=== PATIENT | male | born 1955 | race Caucasian/White ===

== ENCOUNTER 2023-01-11 07:37 | Outpatient (OUT) | payer MEDICARE, OTHER, SELFPAY ==
[2023-01-11 08:03] LABS: Basophils Absolute Auto 0.1 10^3/uL (0.0-0.1); Basophils Percent Auto 0.7 % (0.2-2.0); Eosinophils Absolute Auto 0.1 10^3/uL (0.0-0.7); Eosinophils Percent Auto 1.3 % (0.9-7.0); Hematocrit 46.2 % (42.0-54.0); Hemoglobin 15.2 g/dL (14.0-18.0); Immature Granulocytes Abs Auto 0.07 10^3/uL (0.00-0.03); Lymphocytes Absolute Auto 2.1 10^3/uL (1.2-3.8); Lymphocytes Percent Auto 31.6 % (20.5-60.0); Mean Corpuscular HGB Conc 32.9 g/dL (29.9-35.2); Mean Corpuscular Hemoglobin 31.1 pg (25.9-34.0); Mean Corpuscular Volume 94.7 fL (80.0-94.0); Monocytes Absolute Auto 0.6 10^3/uL (0.3-0.8); Monocytes Percent Auto 8.8 % (1.7-12.0); Neutrophils Absolute Auto 3.8 10^3/uL (1.4-6.5); Neutrophils Percent Auto 56.6 % (43.0-75.0); Platelet Count 258 10^3/uL (150-450); Red Blood Count 4.88 10^6/uL (4.70-6.10); Red Cell Distribution Width 13.1 % (11.0-15.0); White Blood Count 6.7 10^3/uL (4.0-11.0)
[2023-01-11 08:54] LABS: Alanine Aminotransferase 55 U/L (16-63); Albumin Globulin Ratio 1.4; Albumin Level 4.4 g/dL (3.4-5.0); Alkaline Phosphatase 49 U/L (46-116); Anion Gap 12.5; Aspartate Amino Transferase 38 U/L (15-37); BUN Creatinine Ratio 20.2; Bilirubin Total 0.6 mg/dL (0.2-1.0); Calcium 9.2 mg/dL (8.5-10.1); Carbon Dioxide 29.2 mmol/L (21.0-32.0); Chloride 102 mmol/L (98-107); Chol HDL Ratio 4.9; Cholesterol 168 mg/dL (<=200); Estimated GFR (African America >60 (>=60); Estimated GFR (Non-African Ame >60 (>=60); Globulin 3.2 g/dL; Glucose 107 mg/dL (74-106); HDL Cholesterol 34 mg/dL (40-60); Potassium 3.7 mmol/L (3.5-5.1); Sodium 140 mmol/L (136-145); Thyroid Stimulating Hormone 1.406 uIU/mL (0.358-3.740); Total Protein 7.6 g/dL (6.4-8.2); Triglycerides 172 mg/dL (<=150); Uric Acid 5.3 mg/dL (3.5-7.2); VLDL CHOLESTEROL 34.4 mg/dL
[2023-01-11 08:55] LABS: Prostate Specific Antigen Scrn 1.27 ng/mL (<=4.00)
[2023-01-11 10:41] LABS: Estimated Average Glucose 117 mg/dL; Glycohemoglobin A1C 5.7 % (4.5-6.2)
[2023-01-12 10:10] LABS: Insulin 20.8 uIU/mL (2.6-24.9)
== END 2023-01-11 07:38 | disposition home or self-care (01) ==
LOC: LAB 07:42
PROVIDERS: PCP Family Medicine; Visit Provider Family Medicine
DX: M19.90 Unspecified osteoarthritis, unspecified site (principal); M96.1 Postlaminectomy syndrome, not elsewhere classified; E78.1 Pure hyperglyceridemia; E66.3 Overweight; E78.5 Hyperlipidemia, unspecified; R73.09 Other abnormal glucose; Z12.5 Encounter for screening for malignant neoplasm of prostate; Z12.12 Encounter for screening for malignant neoplasm of rectum
CPT/HCPCS: 36415; 80053; 80061; 83036; 83525; 84436; 84443; 84481; 84550; 85025; G0103

== ENCOUNTER 2023-01-20 10:45 | Outpatient (OUT) | payer MEDICARE, OTHER, SELFPAY ==
[2023-01-20 12:54] LABS: Occult Blood Positive
== END 2023-01-20 10:46 | disposition home or self-care (01) ==
LOC: LAB 10:48
PROVIDERS: PCP Family Medicine; Visit Provider Family Medicine
DX: M19.90 Unspecified osteoarthritis, unspecified site (principal); M96.1 Postlaminectomy syndrome, not elsewhere classified; E78.1 Pure hyperglyceridemia; E66.3 Overweight; E78.5 Hyperlipidemia, unspecified; R73.09 Other abnormal glucose; Z12.5 Encounter for screening for malignant neoplasm of prostate; Z12.12 Encounter for screening for malignant neoplasm of rectum
CPT/HCPCS: G0328

== ENCOUNTER 2023-07-12 09:42 | Outpatient (OUT) | payer MEDICARE, OTHER, SELFPAY ==
--- OUTSIDE RECORDS SUMMARY | 2023-07-12 10:00 | XMS_ITS | CCD ---
Author Organization [facility] Care Team Providers Care Upper Leather Sorter Name Role Phone MEE, DR GONZALES Admitting Unavailable HOY, DR GONZALES Attending Unavailable HOY, DR GONZALES Consulting Unavailable HOY, DR GONZALES Primary Care Unavailable ZIEBER, DR SOLIS Adams Consulting Unavailable HOY, DR GONZALES Primary Care Unavailable HOY, DR GONZALES Admitting Unavailable HOY, DR GONZALES Attending Unavailable HOY, DR GONZALES Consulting Unavailable Matamoros, Verona Consulting Unavailable KINGSTONY, DR GONZALES Primary Care Unavailable HOY, DR GONZALES Admitting Unavailable HOY, DR GONZALES Attending Unavailable HOY, DR GONZALES Consulting Unavailable HOY, DR GONZALES Primary Care Unavailable HOY, DR GONZALES Admitting Unavailable HOY, DR GONZALES Attending Unavailable HOY, DR GONZALES Consulting Unavailable ZIEBER, DR SOLIS Adams Consulting Unavailable Problems Active Problems Problem Classification Problem Date Documented Da te Episodic/Chronic Chronic obstructive pulmonary disease and bronchiectasis (4 sources) Bronchitis, not specified as acute or chronic; Translations: [BRONCHITIS NOT SPEC ACUTE/CHRON] Onset: 06-21-2021 Episodic Diabetes mellitus without complication (1 source) Other abnormal glucose; Translations: [OTHER ABNORMAL GLUCOSE] Onset: 06-11-2021 Episodic Disorders of lipid metabolism (5 sources) Pure hyperglyceridemia; Translations: [Hyperlipidemia, unspecified] Onset: 06-10-2021 Chronic Nutritional deficiencies (1 source) Vitamin D deficiency, unspecified; Translations: [VITAMIN D DEFICIENCY UNSPECIFIED] Onset: 06-11-2021 Chronic Other screening for suspected conditions (not mental disorders or infectious disease) (2 sources) Encounter for screening for malignant neoplasm of prostate; Translations: [Encounter for screening for malignant neoplasm of rectum] Onset: 06-11-2021 Episodic Unclassified (1 source) LOW BACK PAIN, UNSPECIFIED; Translations: [LOW BACK PAIN, UNSPECIFIED] Onset: 06-11-2021 Past or Other Problems Problem Classification Problem Date Documented Da te Episodic/Chronic Other connective tissue disease (4 sources) Impingement syndrome of right shoulder; Translations: [IMPINGEMENT SYNDROME RIGHT SHOULDER] Onset: 10-27-2020 Episodic Other connective tissue disease (4 sources) Impingement syndrome of unspecified shoulder; Translations: [IMPINGEMENT SYNDROME UNS SHOULDER] Onset: 10-07-2020 Episodic Results Test Name Value Interpretation Reference Range Facility LEGIONELLA PNUEMOPHILA ABon 06-24-2021 Legionell P. Abs <0.91 Normal 0.00-0.90 [facility] Comment on above: Result Comment: Nega tive <0.91 Equivocal 0.91 - 1.09 Positive >1.09 This assay detects IgG/IgM/IgA antibodies to L. pneumophila Groups 1-6 by the EIA method. Performed By: #### L EGIONA #### [facility] [address] [place], [place] [address] Dr. Jose Greene H PYLORI ANTIBODY IGGon 06-13 H. PYLORI IGG ABS 0.28 Index Value Normal 0.00-0.79 [facility] Comment on above: Result Comment: Nega tive <0.80 Equivocal 0.80 - 0.89 Positive >0.89 Performed By: #### H PYLLC ####[facility] [address] [place] [id number] Greene TOXOPLASMA GONDII IGG ABon 0 06-22-2021 Toxoplasma gondii Ab,IgG,Qn <3.0 Normal 0.0-7.1 [facility] Comment on above: Result Comment: Nega tive <7.2 Equivocal 7.2 - 8.7 Positive >8.7 Performed By: #### T OXPIGG ####[facility] [address] [place], [place] [address]ZqDr. Jose Greene XR CHEST 2 Von 06-21-2021 XR CHEST 2 V EXAM: XR CHEST 2 V EXAM: XR CHEST 2 V INDICATION: 66 years old Male Bronchitis COMPARISON: None. FINDINGS: The cardiac silhouette is normal. There is no pulmonary edema. The lungs are clear. There is no pneumonia. There is no pneumothorax. There is no abnormal foreign body. IMPRESSION: There is no acute abnormality. Electronically authenticated by: VERONA MATAMOROS Date: 2021-06-21 12:58 Normal [facility] INSULINon 06-11-2021 Insulin 17.8 uIU/mL Normal 2.6-24.9 [facility] Comment on above: Performed By: #### I NSULIN ####[facility] [address] [place] [address]Dr. Jose Jc CBC AUTO DIFFon 06-10-2021 BASO # 0.1 103/ul Normal 0.0-0.1 [facility] Comment on above: Performed By: #### C BC ####[facility] [address] [place], [place] [address]Dr. Jose Greene Basophils/100 WBC (Bld) 0.9 % Normal 0.2-2.0 [facility] Comment on above: Performed By: #### C BC ####[facility] [address] [place], [place] [address]Dr. Jose Greene EO # 0.1 103/ul Normal 0.0-0.7 [facility] Comment on above: Performed By: #### C BC ####[facility] [address] [place], [place] [address]Dr. Jose Greene Eosinophils/100 WBC (Bld) 1.4 % Normal 0.9-7.0 [facility] Comment on above: Performed By: #### C BC ####[facility] [address] [place], [place] [address]Dr. Jose Greene Erythrocyte distribution width (RBC) [Ratio] 12.8 % Normal 11.0-15.0 [facility] Comment on above: Performed By: #### C BC ####[facility] [address] [place], [place] [address]Dr. Jose Greene Hematocrit (Bld) [Volume fraction] 47.3 % Normal 42.0-54.0 [facility] Comment on above: Performed By: #### C BC ####[facility] [address] [place], [place] [address]Dr. Jose Greene Hemoglobin (Bld) [Mass/Vol] 15.7 g/dL Normal 14.0-18.0 [facility] Comment on above: Performed By: #### C BC ####[facility] [address] [place] [address]Dr. Jose Greene IG # 0.05 10e3/ul Critically high 0.00-0.03 [facility] Comment on above: Performed By: #### C BC ####[facility] [address] [place] [id number]. Jose Greene IG % 0.8 % Critically high 0.0-0.5 [facility] Comment on above: Performed By: #### C BC ####[facility] [address] [place], [place] [address]DrCharley Greene LYMPH # 2.2 103/ul Normal 1.2-3.8 [facility] Comment on above: Performed By: #### C BC ####[facility] [address] [place] [address]Dr. Jose Greene Lymphocytes/100 WBC (Bld) 35.1 % Normal 20.5-60.0 [facility] Comment on above: Performed By: #### C BC ####[facility] [address] [place] [address]Dr. Jose Gerene MANUAL DIFF REQ NO Normal [facility] Comment on above: Performed By: #### C BC ####[facility] [address] [place] [id number]. Jose Greene MCH (RBC) [Entitic mass] 30.9 pg Normal 25.9-34.0 [facility] Comment on above: Performed By: #### C BC ####[facility] [address] [place] [id number]. Jose Greene MCHC (RBC) [Mass/Vol] 33.2 g/dL Normal 29.9-35.2 [facility] Comment on above: Performed By: #### C BC ####[facility] [address] [place] [id number] Greene MCV (RBC) [Entitic vol] 93.1 fL Normal 80.0-94.0 [facility] Comment on above: Performed By: #### C BC ####[facility] [address] [place] [address]Dr. Jose Greene MONO # 0.7 103/ul Normal 0.3-0.8 [facility] Comment on above: Performed By: #### C BC ####[facility] [address] [place] [id number]. Jose Greene Monocytes/100 WBC (Bld) 11.0 % Normal 1.7-12.0 [facility] Comment on above: Performed By: #### C BC ####[facility] [address] [place], [place] [address]Dr. Jose Greene NEUT # 3.2 103/ul Normal 1.4-6.5 [facility] Comment on above: Performed By: #### C BC ####[facility] [address] [place], [place] [address]Dr. Jose Greene Neutrophils/100 WBC (Bld) 50.8 % Normal 43.0-75.0 [facility] Comment on above: Performed By: #### C BC ####[facility] [address] [place], [place] [address]Dr. Jose Greene Platelet mean volume (Bld) [Entitic vol] 9.8 fL Normal 9.5-13.5 [facility] Comment on above: Performed By: #### C BC ####[facility] [address] [place], [place] [address]Dr. Jose Greene PLT 254 103/ul Normal 150-450 [facility] Comment on above: Performed By: #### C BC ####[facility] [address] [place], [place] [address]Dr. Jose Greene RBC 5.08 106/ul Normal 4.70-6.10 [facility] Comment on above: Performed By: #### C BC ####[facility] [address] [place] [address]Dr. Maurajany Greene WBC 6.4 103/ul Normal 4.0-11.0 [facility] Comment on above: Performed By: #### C BC ####[facility] [address] [place] [id number] Greene FREE THYROXINE INDEX T7on FTI 3.23 Normal [facility] Comment on above: Performed By: #### T SH, T7, URIC, LIPID, CMP #### [facility] [address] [place] [address] [address] Jose Greene T3U 34.0 % Normal 23.5-40.5 [facility] Comment on above: Performed By: #### T SH, T7, URIC, LIPID, CMP #### [facility] [address] [place] [address] [address] Jose Greene T4 [Mass/Vol] 9.50 ug/dL Normal 4.50-12.10 [facility] Comment on above: Performed By: #### T SH, T7, URIC, LIPID, CMP #### [facility] [address] [place] [address] [address] Jose Greene GLYCOHEMOGLOBIN A1Con 2021 ADA RECOMMENDATION SEE BELOW Normal [facility] Comment on above: Result Comment: ADA RECOMMENDED LIMIT 4.0 - 6.0 ADA THERAPEUTIC TARGET < 7.0 ACTION SUGGESTED > 7.0 Performed By: #### A 1C ####[facility] [address] [place] [address]DrCharley Greene Glucose [Mass/Vol] 117 mg/dL Normal [facility] Comment on above: Performed By: #### A 1C ####[facility] [address] [place] [address]DrCharley Greene HbA1c (Bld) [Mass fraction] 5.7 % Normal 4.5-6.2 [facility] Comment on above: Performed By: #### A 1C ####[facility] [address] [place] [address]DrCharley Greene LIPID PROFILEon 06-10-2021 CHOL-HDL RATIO NORM SEE BELOW Normal [facility] Comment on above: Result Comment: 3.3 - 4.4 LOW RISK 4.4 - 7.1 AVERAGE RISK 7.1 - 11.0 MODERATE RISK >11.0 HIGH RISK Performed By: #### T SH, T7, URIC, LIPID, CMP #### [facility] [address] [place] [address] Dr. Jose Greene Cholesterol [Mass/Vol] 180 mg/dL Normal <=200 [facility] Comment on above: Performed By: #### T SH, T7, URIC, LIPID, CMP #### [facility] [address] [place] [address] Dr. Jose Greene Cholesterol in HDL [Mass/Vol] 32 mg/dL Critically low 40-60 [facility] Comment on above: Performed By: #### T SH, T7, URIC, LIPID, CMP #### [facility] [address] [place] [address] Dr. Jose Greene Cholesterol in LDL [Mass/Vol] 117.6 mg/dL Normal [facility] Comment on above: Performed By: #### T SH, T7, URIC, LIPID, CMP #### [facility] [address] [place] [address] Dr. Jose Greene Cholesterol.total/Ch olesterol in HDL [Mass ratio] 5.6 {ratio} Normal [facility] Comment on above: Performed By: #### T SH, T7, URIC, LIPID, CMP #### [facility] [address] [place] [address] Dr. Jose Greene HDL NORMAL > or = 60 mg/dl - LO W CARDIOVASCULAR RISK <40 mg/dl - HIGH CARDIOVASCULAR RISK Normal [facility] Comment on above: Performed By: #### T SH, T7, URIC, LIPID, CMP #### [facility] [address] [place] [address] Dr. Jose Greene LDL CALC NORMAL SEE BELOW Normal [facility] Comment on above: Result Comment: <100 mg/dl OPTIMAL 100 - 129 mg/dl NEAR OR ABOVE OPTIMAL 130 - 159 mg/dl BORDERLINE HIGH 160 - 189 mg/dl HIGH >190 mg/dl VERY HIGH Performed By: #### T SH, T7, URIC, LIPID, CMP #### [facility] [address] [place] [address] Dr. Jose Greene Triglyceride [Mass/Vol] 152 mg/dL Critically high <=150 [facility] Comment on above: Performed By: #### T SH, T7, URIC, LIPID, CMP #### [facility] [address] [place] [address] [address] Jose Greene VLDL CALC 30.4 mg/dL Normal [facility] Comment on above: Performed By: #### T SH, T7, URIC, LIPID, CMP #### [facility] [address] [place] [address] [address] Jose Greene OCC BLD IMMUNO SCREENon 05-15 OCCULT BLOOD Negative Normal NEGATIVE [facility] Comment on above: Performed By: #### O BSCRN #### [facility] [address] [place] [address] Dr. Jose Greene PROF 14(COMP METB)on 022 Albumin [Mass/Vol] 4.5 g/dL Normal 3.4-5.0 [facility] Comment on above: Performed By: #### T SH, T7, URIC, LIPID, CMP #### [facility] [address] [place] [address] Dr. Jose Greene Albumin/Globulin [Mass ratio] 1.4 {ratio} Normal [facility] Comment on above: Performed By: #### T SH, T7, URIC, LIPID, CMP #### [facility] [address] [place] [address] Dr. Jose Greene ALP [Catalytic activity/Vol] 55 U/L Normal 46-116 [facility] Comment on above: Performed By: #### T SH, T7, URIC, LIPID, CMP #### [facility] [address] [place] [address] Dr. Jose Greene ALT [Catalytic activity/Vol] 42 U/L Normal 16-63 [facility] Comment on above: Performed By: #### T SH, T7, URIC, LIPID, CMP #### [facility] [address] [place] [address] [address] Jose Greene Anion gap [Moles/Vol] 11.5 mmol/L Normal [facility] Comment on above: Performed By: #### T SH, T7, URIC, LIPID, CMP #### [facility] [address] [place] [address] Dr. Jose Greene AST [Catalytic activity/Vol] 28 U/L Normal 15-37 [facility] Comment on above: Performed By: #### T SH, T7, URIC, LIPID, CMP #### [facility] [address] [place] [address] Dr. Jose Greene Bilirubin [Mass/Vol] 0.5 mg/dL Normal 0.2-1.0 [facility] Comment on above: Performed By: #### T SH, T7, URIC, LIPID, CMP #### [facility] [address] [place] [address] Dr. Jose Greene Calcium [Mass/Vol] 9.4 mg/dL Normal 8.5-10.1 [facility] Comment on above: Performed By: #### T SH, T7, URIC, LIPID, CMP #### [facility] [address] [place] [address] Dr. Jose Greene Chloride [Moles/Vol] 102 mmol/L Normal 98-107 [facility] Comment on above: Performed By: #### T SH, T7, URIC, LIPID, CMP #### [facility] [address] [place] [address] Dr. Jose Greene CO2 [Moles/Vol] 28.8 mmol/L Normal 21.0-32.0 [facility] Comment on above: Performed By: #### T SH, T7, URIC, LIPID, CMP #### [facility] [address] [place] [address] Dr. Jose Greene Creatinine [Mass/Vol] 0.92 mg/dL Normal 0.70-1.30 [facility] Comment on above: Performed By: #### T SH, T7, URIC, LIPID, CMP #### [facility] [address] [place] [address] Dr. Jose Greene EGFR-AF AUSTRALIAN >=60 Normal >=60 [facility] Comment on above: Performed By: #### T SH, T7, URIC, LIPID, CMP #### [facility] [address] [place] [address] Dr. Jose Greene EGFR-NON AF AUSTRALIAN >=60 Normal >=60 [facility] Comment on above: Performed By: #### T SH, T7, URIC, LIPID, CMP #### [facility] [address] [place] [address] [address] Jose Greene Globulin (S) [Mass/Vol] 3.2 g/dL Normal [facility] Comment on above: Performed By: #### T SH, T7, URIC, LIPID, CMP #### [facility] [address] [place] [address] [address] Jose Greene Glucose [Mass/Vol] 107 mg/dL Critically high 74-106 [facility] Comment on above: Performed By: #### T SH, T7, URIC, LIPID, CMP #### [facility] [address] [place] [address] Dr. Jose Greene Potassium [Moles/Vol] 4.3 mmol/L Normal 3.5-5.1 [facility] Comment on above: Performed By: #### T SH, T7, URIC, LIPID, CMP #### [facility] [address] [place] [address] [address] Jose Greene Protein [Mass/Vol] 7.7 g/dL Normal 6.1-8.2 [facility] Comment on above: Performed By: #### T SH, T7, URIC, LIPID, CMP #### [facility] [address] [place] [address] Dr. Jose Greene Sodium [Moles/Vol] 138 mmol/L Normal 136-145 [facility] Comment on above: Performed By: #### T SH, T7, URIC, LIPID, CMP #### [facility] [address] [place] [address] Dr. Jose Greene Urea nitrogen [Mass/Vol] 17.0 mg/dL Normal 7.0-18.0 [facility] Comment on above: Performed By: #### T SH, T7, URIC, LIPID, CMP #### [facility] [address] [place] [address] Dr. Jose Greene Urea nitrogen/Creatinine [Mass ratio] 18.5 mg/mg Normal [facility] Comment on above: Performed By: #### T SH, T7, URIC, LIPID, CMP #### [facility] [address] [place] [address] [address] Jose Greene TSHon 06-10-2021 TSH 2.493 uIU/mL Normal 0.470-4.680 [facility] Comment on above: Performed By: #### T SH, T7, URIC, LIPID, CMP #### [facility] [address] [place] [address] Dr. Jose Greene TSH RANGE SEE BELOW Normal [facility] Comment on above: Result Comment: <0.3 4 UIU/ml HYPERTHYROID 0.34-5.60 UIU/ml EUTHYROID >5.60 UIU/ml HYPOTHYROID Performed By: #### T SH, T7, URIC, LIPID, CMP #### [facility] [address] [place] [address] Dr. Jose Greene URIC ACID SERUMon 06-10-2021 Urate [Mass/Vol] 5.1 mg/dL Normal 3.5-8.5 [facility] Comment on above: Performed By: #### T SH, T7, URIC, LIPID, CMP #### [facility] [address] [place] [address] Dr. Jose Greene VITAMIN D 25 OHon 06-10-2021 VIT D 25-OH 44.2 ng/mL Normal [facility] Comment on above: Performed By: #### P EVELIN, VITAD ####[facility] [address] [place], [place] [address]Dr. Jose Greene VIT D RANGES SEE BELOW Normal [facility] Comment on above: Result Comment: <20 ng/mL Vit D deficient 20 - <30 ng/mL Vit D insufficient 30 - 100 ng/mL Vit D sufficient >100 ng/mL Potential Toxicity Performed By: #### P JONNIEC, VITAD ####[facility] [address] [place] [address]Dr. Jose Greene MRI SHOULDER ARTHROGRAMon MRI SHOULDER ARTHROGRAM EXAMINATION: MRI SHOULDER ARTHROGRAM HISTORY: Pain of right shoulder joint COMPARISON: No relevant comparison available. TECHNIQUE: A variety of imaging planes and parameters were utilized for visualization of suspected pathology. Imaging was performed with intra-articular contrast. FINDINGS: ROTATOR CUFF REGION CUFF TENDONS: Marked thinning and increased T2 signal within the supraspinatus tendon without disruption or retraction. [place] within the anterolateral humeral head consistent with prior rotator cuff repair. CUFF MUSCLES: Normal appearing muscles. DELTOID: No significant atrophy or tear. LONG BICEPS TENDON: No abnormal signal, attrition, or tear. LABRUM/BICEPS ANCHOR SUPERIOR: Suspect tear of the anterior and superior labrum. ANTERIOR/INFERIOR: Suspected tear of the anterior labrum. POSTERIOR: No posterior labrum abnormality. CAPSULE No visible capsular laxity or thickening. 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 AC LIGAMENTS: Normal acromioclavicular ligament. CC LIGAMENTS: Normal coracoclavicular ligaments. ACROMION: Normal horizontal (Type I) configuration. SUBACROMIAL BURSA: Small effusion. HYALINE CARTILAGE: No visible cartilage narrowing or focal defect. OTHER BONES: Normal proximal humerus, glenoid, and coracoid. OTHER OBSERVATIONS: Negative. No other significant findings or glenohumeral effusion. IMPRESSION: 1. Partial tear of the supraspinatus tendon with marked increased T2 signal; no disruption or retraction. 2. Small amount of fluid within the subacromial-subdeltoid bursa suggesting a focal area of full-thickness tear. 3. Prior rotator cuff repair. 4. Moderate degenerative changes of acromioclavicular joints with prominent undersurface osteophyte. 5. Suspect tear of the anterior and superior labrum. Electronically authenticated by: SOLIS CRUZ Date: 2020-10-28 06:58 Normal [facility] XR ARTHRO SHLD RTon 10-28-19 21 XR ARTHRO SHLD RT EXAMINATION: XR ARTH RO SHLD RT HISTORY: Pain of right shoulder joint COMPARISON: No relevant comparison available. TECHNIQUE: An arthrogram was performed under fluoroscopic guidance using non-ionic contrast material in the usual sterile manner after obtaining informed consent. Standard level fluoroscopic mode of operation utilized. FINDINGS: JOINT: Right shoulder NEEDLE: 25 gauge, 3.5 spinal needle. MEDICATION: Approximately 10 mL injected into joint space consisting of a mixture of 5 cc normal saline, 5 cc Omnipaque-300, 5 cc 1% Xylocaine and 0.2 cc Dotarem. TECHNIQUE: Anterior approach under fluoroscopic guidance. CLINICAL: Slight decrease in pain following the injection. COMPLICATIONS: None. BONES: No fracture, significant osseous degenerative changes, or visible bone lesion. BURSA: No visible extension of contrast into the subacromial-subdeltoid bursa at this time. OTHER: Negative. IMPRESSION: 1. Technically successful arthrogram without complication. 2. Please see separate CT or MRI arthrogram report. Electronically authenticated by: SOLIS CRUZ Date: 2020-10-27 15:45 Normal [facility] MR knee LT wo conon 05-09-19 21 MR knee LT wo con [facility] [place] [address] MRI Report Signed Patient: Jim Guerrier MR#: [id number] 18 : 1955 Acct:[id number] Age/Sex: 65 / M ADM Date: 05/08/20 Loc: [facility] Room: Type: [facility] Attending Dr: Chrsitian Caban MD Ordering Provider: Christian Caban MD Date of Service: 05/08/20 MR/MR knee LT wo con: LT. KNEE PAIN Copies to: Christian Caban MD MR knee LT wo con 05/08/2020 10:17 AM SIGNS AND SYMPTOMS: LT. KNEE PAIN PROTOCOL: Multiplanar multisequence MR images of the left knee were obtained without IV contrast. COMPARISON: Radiographs from 04/28/2020 FINDINGS: Fluid: There is a small joint effusion. There is no evidence of Villa's cyst.. Medial compartment: Medial meniscus: There is an obliquely oriented minimally displaced tear of the posterior horn and body of the meniscus.. There are no displaced fragments. Medial collateral ligament: Intact. Medial femoral condyle cartilage: There is full thickness chondromalacia with mild subchondral edema.. Osteophytosis. Medial tibial plateau cartilage: There is partial thickness chondromalacia.. Lateral compartment: Lateral meniscus: Intact. Lateral collateral ligament: Intact. Lateral femoral condyle cartilage: Intact. Lateral tibial plateau cartilage: Intact. Posterolateral corner: Popliteus tendon: Intact. Popliteofibular ligament: Intact. Proximal tibiofibular joint: Intact. Anterior compartment: Alignment: Normal. Quadriceps tendon: Intact. Patellar tendon: Intact. Retinaculum: Medial intact. Lateral intact. Patellar cartilage: There is partial thickness chondromalacia predominantly along the lateral articular facet.. Trochlea: There is mild partial thickness chondromalacia.. . Plica: There is a 1.5 cm plica projecting into the medial patellofemoral joint space. Hoffa fat pad: Normal. Intercondylar compartment: Anterior cruciate ligament: Intact. Posterior cruciate ligament: Intact. Bones (other than subarticular marrow): There is marrow edema along the medial aspects of the medial tibial plateau anteriorly which may represent a bone contusion. Muscles: Normal. Vessels: Normal. Nerves: Normal. MR/MR knee LT wo con IMPRESSION: There is an obliquely oriented minimally displaced tear of the posterior horn and body of the meniscus.. There are no displaced fragments. There is full thickness cartilage along the medial femoral condyle with partial thickness chondromalacia of the medial tibial plateau. There is partial thickness chondral malacia along the lateral articular facet of the patella. There is a plica in the medial aspect of the patellofemoral joint space measuring 1.5 cm in length. There is marrow edema along the medial aspects of the medial tibial plateau anteriorly which may represent a bone contusion. Impression dictated by: Kelvin Salazar M.D.05/08/2020 2:34 PM Dictation Location: [place] [address] Transcribed By: [facility] 05/08/20 1434 Dictated By: Kelvin Salazar II, MD 05/08/20 1423 Signed By: 05/08/20 1434 Normal [facility] XR knee LT 4V*on 04-28-2020 XR knee LT 4V* [facility] [place] [address] XRay Report Signed Patient: Jim Guerrier MR#: [id number] 18 : 1955 Acct:[id number] Age/Sex: 65 / M ADM Date: 04/28/20 Loc: XD Room: Type: [facility] Attending Dr: Christian Caban MD Ordering Provider: Christian Caban MD Date of Service: 04/28/20 XR/XR knee LT 4V*: M23.9 Copies to: Christian Caban MD CLINICAL HISTORY: Left knee gave out while walking 3 month ago, medial and the posterior knee pain. XR knee LT 4V* COMPARISON: None FINDINGS: AP, lateral and oblique views of the left knee were obtained. There is no evidence of fracture, dislocation or bony erosion. No significant knee joint narrowing is noted. Minimal spurs are shown at the medial and the lateral femoral condyles, proximal tibia, and the posterior aspect of the patella. XR/XR knee LT 4V* IMPRESSION: SLIGHT DEGENERATIVE SPURS AT THE LEFT KNEE. Impression dictated by: Paul Gorman M.D.04/28/2020 12:09 PM Dictation Location: [place] [address] Transcribed By: [facility] 04/28/20 1209 Dictated By: Paul Gorman MD 04/28/20 1206 Signed By: 04/28/20 1209 [facility] Encounters Encounter Date Encounter Type Care Provider Facility Start: 06-21-2021 End: 06-22-[address] CHRISTIAN CABAN Facility:[facility] Start: 06-10-2021 End: 06-11-[address] CHRISTIAN CABAN Facility:[facility] Start: 10-27-2020 End: 10-27-[address] CHRISTIAN CABAN Facility:[facility] Start: 10-07-2020 End: 10-08-[address] CHRISTIAN CABAN Facility:[facility] Procedures Date Procedure Procedure Detail Performing Clinician Start: 06-10-[address] DEION CABAN Comment on above: Performed By: #### P [facility] ####[facility] [address] [place], [place] [address]AoCharley Jose Greene Payers Date Payer Category Payer Medicare [id number] 1961 Private Health Insurance [facility] [id number] 1961 Unknown [id number] 1955 Unknown [id number] 2.16.84 [id number] 1955 Unknown [id number] 2.16.84 [id number] 1955 Unknown [id number] 2.16.84 [id number] 1955 Unknown [id number] 2.16.84 [id number] Clinical Note 10-07-2020 Note Date & Type Note Facility 10-07-2020 Note PROCEDURE: XR SHOULD ER RT 2V or > HISTORY: Impingement syndrome of shoulder region ; chronic right shoulder pain COMPARISON: None. FINDINGS: BONES:Mild degenerative changes of the acromioclavicular joint. No unremarkable humeral head and glenohumeral joint. No fracture, dislocation, bone lesion. Prior mechanical stabilization of the lower cervical spine. SOFT TISSUES:No visible soft tissue swelling. EFFUSION:None visible. OTHER: Negative. IMPRESSION: 1. Mild degenerative changes of the acromioclavicular joint which may predispose to rotator cuff injury. 2. No acute bone abnormality. Electronically authenticated by: SOLIS CRUZ Date: 2020-10-07 15:49 [facility] Summary Purpose Family History No Family History Records FoundNo Family History Records Found Advance Directives No Advanced Directives Records FoundNo Advanced Directives Records Found Additional Source Comments (unrecognized sect ion and content) No Status Records FoundNo Status Records Found INFORMATION SOURCE (unrecogn ized section and content) DATE CREATED AUTHOR 04/04/2021 [facility] DATE CREATED AUTHOR AUTHOR'S ORGANIZ ATION 06/25/2021 [facility] FOR RECORDS PERTAINING TO PATIENTS WHO ARE OR HAVE BEEN ENROLLED IN A CHEMICAL DEPENDENCY/SUBSTANCEABUSE PROGRAM, SOME INFORMATION MAY BE OMITTED. This clinical summary was aggregated from multiple sources. Caution should be exercised in using it in the provision of clinical care. This summary normalizes information from multiple sources, and as a consequence, information in this document may materially change the coding, format and clinical context of patient data. In addition, data may be omitted in some cases. CLINICAL DECISIONS SHOULD BE BASED ON THE PRIMARY CLINICAL RECORDS. [facility] [employer] [facility]. provides no warranty or guarantee of the accuracy or completeness of information in this document.
[2023-07-12 10:21] LABS: Basophils Absolute Auto 0.1 10^3/uL (0.0-0.1); Eosinophils Absolute Auto 0.1 10^3/uL (0.0-0.7); Eosinophils Percent Auto 1.9 % (0.9-7.0); Hematocrit 46.2 % (42.0-54.0); Immature Granulocytes Abs Auto 0.08 10^3/uL (0.00-0.03); Immature Granulocytes Pct Auto 1.2 % (0.0-0.5); Lymphocytes Absolute Auto 2.3 10^3/uL (1.2-3.8); Lymphocytes Percent Auto 32.7 % (20.5-60.0); Mean Corpuscular HGB Conc 32.5 g/dL (29.9-35.2); Mean Corpuscular Hemoglobin 30.4 pg (25.9-34.0); Mean Corpuscular Volume 93.7 fL (80.0-94.0); Mean Platelet Volume 10.6 fL (9.5-13.5); Monocytes Absolute Auto 0.7 10^3/uL (0.3-0.8); Monocytes Percent Auto 9.5 % (1.7-12.0); Neutrophils Absolute Auto 3.7 10^3/uL (1.4-6.5); Neutrophils Percent Auto 53.7 % (43.0-75.0); Platelet Count 258 10^3/uL (150-450); Red Blood Count 4.93 10^6/uL (4.70-6.10); Red Cell Distribution Width 13.1 % (11.0-15.0); White Blood Count 6.9 10^3/uL (4.0-11.0)
[2023-07-12 10:52] LABS: Alanine Aminotransferase 42 U/L (16-63); Albumin Globulin Ratio 1.4; Albumin Level 4.4 g/dL (3.4-5.0); Alkaline Phosphatase 52 U/L (46-116); Anion Gap 11.3; Aspartate Amino Transferase 31 U/L (15-37); BUN Creatinine Ratio 18.9; Bilirubin Total 0.7 mg/dL (0.2-1.0); Calcium 9.1 mg/dL (8.5-10.1); Carbon Dioxide 28.8 mmol/L (21.0-32.0); Chloride 104 mmol/L (98-107); Chol HDL Ratio 5.3; Cholesterol 185 mg/dL (<=200); Estimated GFR (African America >60 (>=60); Estimated GFR (Non-African Ame >60 (>=60); Free T3 2.96 pg/mL (2.18-3.98); Globulin 3.2 g/dL; Glucose 101 mg/dL (74-106); HDL Cholesterol 35 mg/dL (40-60); Potassium 4.1 mmol/L (3.5-5.1); Sodium 140 mmol/L (136-145); Total Protein 7.6 g/dL (6.4-8.2); Triglycerides 211 mg/dL (<=150); Uric Acid 5.5 mg/dL (3.5-7.2); VLDL CHOLESTEROL 42.2 mg/dL
[2023-07-12 11:26] LABS: Estimated Average Glucose 117 mg/dL; Glycohemoglobin A1C 5.7 % (4.5-6.2)
[2023-07-13 09:09] LABS: Insulin 21.8 uIU/mL (2.6-24.9)
== END 2023-07-12 09:43 | disposition home or self-care (01) ==
LOC: LAB 09:44
PROVIDERS: PCP Family Medicine; Visit Provider Family Medicine
DX: M96.1 Postlaminectomy syndrome, not elsewhere classified (principal); E78.1 Pure hyperglyceridemia; N31.9 Neuromuscular dysfunction of bladder, unspecified; E78.5 Hyperlipidemia, unspecified; R73.09 Other abnormal glucose; Z12.12 Encounter for screening for malignant neoplasm of rectum
CPT/HCPCS: 36415; 80053; 80061; 83036; 83525; 84436; 84443; 84481; 84550; 85025

== ENCOUNTER 2023-07-19 12:14 | Outpatient (REF) | payer MEDICARE, OTHER, SELFPAY ==
--- OUTSIDE RECORDS SUMMARY | 2023-07-19 12:19 | XMS_ITS | CCD ---
Author Organization [facility] [place] [facility] Care Team Providers Care Non Destructive Evaluation Manager Name Role Phone MEE, DR GONZALES Admitting [...] 06-24-2021 Legionell P. Abs <0.91 Normal 0.00-0.90 [facility] Comment on above: Result Comment: Nega tive <0.91 Equivocal 0.91 - 1.09 Positive >1.09 This assay detects IgG/IgM/IgA antibodies to L. pneumophila Groups 1-6 by the EIA method. Performed By: #### L EGIONA #### [facility] [address] [place], [place] [address] Dr. Jose Greene H PYLORI ANTIBODY IGGon 06-13 H. PYLORI IGG ABS 0.28 Index Value Normal 0.00-0.79 [facility] Comment on above: Result Comment: Nega tive <0.80 Equivocal 0.80 - 0.89 Positive >0.89 Performed By: #### H PYLLC ####[facility] [address] [place] [id number] Greene TOXOPLASMA GONDII IGG ABon 0 06-22-2021 Toxoplasma gondii Ab,IgG,Qn <3.0 Normal 0.0-7.1 [facility] Comment on above: Result Comment: Nega tive <7.2 Equivocal 7.2 - 8.7 Positive >8.7 Performed By: #### T OXPIGG ####[facility] [address] [place], [place] [address]CoDr. Jose Greene XR CHEST 2 Von 06-21-2021 [...] VERONA MATAMOROS Date: 2021-06-21 12:[address] [facility] INSULINon 06-11-2021 Insulin 17.8 uIU/mL Normal 2.6-24.[address] [facility] Comment on above: Performed By: #### I NSULIN ####[facility] [address] [place] [address]Dr. Jose Jc CBC AUTO DIFFon 06-10-2021 BASO # 0.1 103/ul Normal 0.0-0.1 [facility] Comment on above: Performed By: #### C BC ####[facility] [address] [place], [place] [address]Dr. Jose Greene Basophils/100 WBC (Bld) 0.9 % Normal 0.2-2.[address] [facility] Comment on above: Performed By: #### C BC ####[facility] [address] [place], [place] [address]Dr. Jose Greene EO # 0.1 103/ul Normal 0.0-0.[address] [facility] Comment on above: Performed By: #### C BC ####[facility] [address] [place], [place] [address]Dr. Jose Greene Eosinophils/100 WBC (Bld) 1.4 % Normal 0.9-7.[address] [facility] Comment on above: Performed By: #### C BC ####[facility] [address] [place], [place] [address]Dr. Jose Greene Erythrocyte distribution width (RBC) [Ratio] 12.8 % Normal 11.0-15.[address] [facility] Comment on above: Performed By: #### C BC ####[facility] [address] [place], [place] [address]Dr. Jose Greene Hematocrit (Bld) [Volume fraction] 47.3 % Normal 42.0-54.[address] [facility] Comment on above: Performed By: #### C BC ####[facility] [address] [place], [place] [address]Dr. Jose Greene Hemoglobin (Bld) [Mass/Vol] 15.7 g/dL Normal 14.0-18.0 [facility] Comment on above: Performed By: #### C BC ####[facility] [address] [place] [address]Dr. Jose Greene IG # 0.05 10e3/ul Critically high 0.00-0.03 [facility] Comment on above: Performed By: #### C BC ####[facility] [address] [place] [id number]. Jose Greene IG % 0.8 % Critically high 0.0-0.5 [facility] Comment on above: Performed By: #### C BC ####[facility] [address] [place], [place] [address]DrCharley Greene LYMPH # 2.2 103/ul Normal 1.2-3.8 [facility] Comment on above: Performed By: #### C BC ####[facility] [address] [place] [address]Dr. Jose Greene Lymphocytes/100 WBC (Bld) 35.1 % Normal 20.5-60.0 [facility] Comment on above: Performed By: #### C BC ####[facility] [address] [place] [address]Dr. Jose Greene MANUAL DIFF REQ NO Normal [facility] Comment on above: Performed By: #### C BC ####[facility] [address] [place] [id number]. Jose Greene MCH (RBC) [Entitic mass] 30.9 pg Normal 25.9-34.0 [facility] Comment on above: Performed By: #### C BC ####[facility] [address] [place] [address]Dr. Jose Greene MCHC (RBC) [Mass/Vol] 33.2 g/dL Normal 29.9-35.[address] [facility] Comment on above: Performed By: #### C BC ####[facility] [address] [place] [address]DrCharley Greene MCV (RBC) [Entitic vol] 93.1 fL Normal 80.0-94.0 [facility] Comment on above: Performed By: #### C BC ####[facility] [address] [place] [address]Dr. Jose Greene MONO # 0.7 103/ul Normal 0.3-0.8 [facility] Comment on above: Performed By: #### C BC ####[facility] [address] [place] [id number]. Jose Greene Monocytes/100 WBC (Bld) 11.0 % Normal 1.7-12.0 [facility] Comment on above: Performed By: #### C BC ####[facility] [address] [place], [place] [address]Dr. Jose Greene NEUT # 3.2 103/ul Normal 1.4-6.5 [facility] Comment on above: Performed By: #### C BC ####[facility] [address] [place], [place] [address]Dr. Jose Greene Neutrophils/100 WBC (Bld) 50.8 % Normal 43.0-75.0 [facility] Comment on above: Performed By: #### C BC ####[facility] [address] [place], [place] [address]Dr. Jose Greene Platelet mean volume (Bld) [Entitic vol] 9.8 fL Normal 9.5-13.5 [facility] Comment on above: Performed By: #### C BC ####[facility] [address] [place], [place] [address]Dr. Jose Greene PLT 254 103/ul Normal 150-[address] [facility] Comment on above: Performed By: #### C BC ####[facility] [address] [place], [place] [address]Dr. Jose Greene RBC 5.08 106/ul Normal 4.70-6.[address] [facility] Comment on above: Performed By: #### C BC ####[facility] [address] [place] [address]Dr. Maurajany Greene WBC 6.4 103/ul Normal 4.0-11.[address] [facility] Comment on above: Performed By: #### C BC ####[facility] [address] [place] [id number] Greene FREE THYROXINE INDEX T7on FTI 3.23 Normal [facility] Comment on above: Performed By: #### T SH, T7, URIC, LIPID, CMP #### [facility] [address] [place] [address] [address] Jose Greene T3U 34.0 % Normal 23.5-40.5 [facility] Comment on above: Performed By: #### T SH, T7, URIC, LIPID, CMP #### [facility] [address] [place] [address] [address] Jose Greene T4 [Mass/Vol] 9.50 ug/dL Normal 4.50-12.10 [facility] Comment on above: Performed By: #### T SH, T7, URIC, LIPID, CMP #### [facility] [address] [place] [address] [address] Jose Greene GLYCOHEMOGLOBIN A1Con 2021 ADA RECOMMENDATION SEE BELOW Normal [facility] Comment on above: Result Comment: ADA RECOMMENDED LIMIT 4.0 - 6.0 ADA THERAPEUTIC TARGET < 7.0 ACTION SUGGESTED > 7.0 Performed By: #### A 1C ####[facility] [address] [place] [address]DrCharley Greene Glucose [Mass/Vol] 117 mg/dL Normal [facility] Comment on above: Performed By: #### A 1C ####[facility] [address] [place] [address]DrCharley Greene HbA1c (Bld) [Mass fraction] 5.7 % Normal 4.5-6.2 [facility] Comment on above: Performed By: #### A 1C ####[facility] [address] [place] [address]DrCharley Greene LIPID PROFILEon 06-10-2021 CHOL-HDL RATIO NORM SEE BELOW Normal [facility] Comment on above: Result Comment: 3.3 - 4.4 LOW RISK 4.4 - 7.1 AVERAGE RISK 7.1 - 11.0 MODERATE RISK >11.0 HIGH RISK Performed By: #### T SH, T7, URIC, LIPID, CMP #### [facility] [address] [place] [address] Dr. Jose Greene Cholesterol [Mass/Vol] 180 mg/dL Normal <=200 [facility] Comment on above: Performed By: #### T SH, T7, URIC, LIPID, CMP #### [facility] [address] [place] [address] Dr. Jose Greene Cholesterol in HDL [Mass/Vol] 32 mg/dL Critically low 40-60 [facility] Comment on above: Performed By: #### T SH, T7, URIC, LIPID, CMP #### [facility] [address] [place] [address] Dr. Jose Greene Cholesterol in LDL [Mass/Vol] 117.6 mg/dL Normal [facility] Comment on above: Performed By: #### T SH, T7, URIC, LIPID, CMP #### [facility] [address] [place] [address] Dr. Jose Greene Cholesterol.total/Ch olesterol in HDL [Mass ratio] 5.6 {ratio} Normal [facility] Comment on above: Performed By: #### T SH, T7, URIC, LIPID, CMP #### [facility] [address] [place] [address] Dr. Jose Greene HDL NORMAL > or = 60 mg/dl - LO W CARDIOVASCULAR RISK <40 mg/dl - HIGH CARDIOVASCULAR RISK Normal [facility] Comment on above: Performed By: #### T SH, T7, URIC, LIPID, CMP #### [facility] [address] [place] [address] Dr. Jose Greene LDL CALC NORMAL SEE BELOW Normal [facility] Comment on above: Result Comment: <100 mg/dl OPTIMAL 100 - 129 mg/dl NEAR OR ABOVE OPTIMAL 130 - 159 mg/dl BORDERLINE HIGH 160 - 189 mg/dl HIGH >190 mg/dl VERY HIGH Performed By: #### T SH, T7, URIC, LIPID, CMP #### [facility] [address] [place] [address] Dr. Jose Greene Triglyceride [Mass/Vol] 152 mg/dL Critically high <=150 [facility] Comment on above: Performed By: #### T SH, T7, URIC, LIPID, CMP #### [facility] [address] [place] [address] [address] Jose Greene VLDL CALC 30.4 mg/dL Normal [facility] Comment on above: Performed By: #### T SH, T7, URIC, LIPID, CMP #### [facility] [address] [place] [address] [address] Jose Greene OCC BLD IMMUNO SCREENon 05-15 OCCULT BLOOD Negative Normal NEGATIVE [facility] Comment on above: Performed By: #### O BSCRN #### [facility] [address] [place] [address] Dr. Jose Greene PROF 14(COMP METB)on 022 Albumin [Mass/Vol] 4.5 g/dL Normal 3.4-5.0 [facility] Comment on above: Performed By: #### T SH, T7, URIC, LIPID, CMP #### [facility] [address] [place] [address] Dr. Jose Greene Albumin/Globulin [Mass ratio] 1.4 {ratio} Normal [facility] Comment on above: Performed By: #### T SH, T7, URIC, LIPID, CMP #### [facility] [address] [place] [address] Dr. Jose Greene ALP [Catalytic activity/Vol] 55 U/L Normal 46-116 [facility] Comment on above: Performed By: #### T SH, T7, URIC, LIPID, CMP #### [facility] [address] [place] [address] Dr. Jose Greene ALT [Catalytic activity/Vol] 42 U/L Normal 16-63 [facility] Comment on above: Performed By: #### T SH, T7, URIC, LIPID, CMP #### [facility] [address] [place] [address] [address] Jose Greene Anion gap [Moles/Vol] 11.5 mmol/L Normal [facility] Comment on above: Performed By: #### T SH, T7, URIC, LIPID, CMP #### [facility] [address] [place] [address] Dr. Jose Greene AST [Catalytic activity/Vol] 28 U/L Normal 15-37 [facility] Comment on above: Performed By: #### T SH, T7, URIC, LIPID, CMP #### [facility] [address] [place] [address] Dr. Jose Greene Bilirubin [Mass/Vol] 0.5 mg/dL Normal 0.2-1.0 [facility] Comment on above: Performed By: #### T SH, T7, URIC, LIPID, CMP #### [facility] [address] [place] [address] Dr. Jose Greene Calcium [Mass/Vol] 9.4 mg/dL Normal 8.5-10.1 [facility] Comment on above: Performed By: #### T SH, T7, URIC, LIPID, CMP #### [facility] [address] [place] [address] Dr. Jose Greene Chloride [Moles/Vol] 102 mmol/L Normal 98-[address] [facility] Comment on above: Performed By: #### T SH, T7, URIC, LIPID, CMP #### [facility] [address] [place] [address] Dr. Jose Greene CO2 [Moles/Vol] 28.8 mmol/L Normal 21.0-32.0 [facility] Comment on above: Performed By: #### T SH, T7, URIC, LIPID, CMP #### [facility] [address] [place] [address] Dr. Jose Greene Creatinine [Mass/Vol] 0.92 mg/dL Normal 0.70-1.30 [facility] Comment on above: Performed By: #### T SH, T7, URIC, LIPID, CMP #### [facility] [address] [place] [address] Dr. Jose Greene EGFR-AF BAHRAINI >=60 Normal >=60 [facility] Comment on above: Performed By: #### T SH, T7, URIC, LIPID, CMP #### [facility] [address] [place] [address] Dr. Jose Greene EGFR-NON AF BAHRAINI >=60 Normal >=60 [facility] Comment on above: Performed By: #### T SH, T7, URIC, LIPID, CMP #### [facility] [address] [place] [address] [address] Jose Greene Globulin (S) [Mass/Vol] 3.2 g/dL Normal [facility] Comment on above: Performed By: #### T SH, T7, URIC, LIPID, CMP #### [facility] [address] [place] [address] [address] Jose Greene Glucose [Mass/Vol] 107 mg/dL Critically high 74-106 [facility] Comment on above: Performed By: #### T SH, T7, URIC, LIPID, CMP #### [facility] [address] [place] [address] Dr. Jose Greene Potassium [Moles/Vol] 4.3 mmol/L Normal 3.5-5.1 [facility] Comment on above: Performed By: #### T SH, T7, URIC, LIPID, CMP #### [facility] [address] [place] [address] [address] Jose Greene Protein [Mass/Vol] 7.7 g/dL Normal 6.1-8.2 [facility] Comment on above: Performed By: #### T SH, T7, URIC, LIPID, CMP #### [facility] [address] [place] [address] Dr. Jose Greene Sodium [Moles/Vol] 138 mmol/L Normal 136-145 [facility] Comment on above: Performed By: #### T SH, T7, URIC, LIPID, CMP #### [facility] [address] [place] [address] Dr. Jose Greene Urea nitrogen [Mass/Vol] 17.0 mg/dL Normal 7.0-18.0 [facility] Comment on above: Performed By: #### T SH, T7, URIC, LIPID, CMP #### [facility] [address] [place] [address] Dr. Jose Greene Urea nitrogen/Creatinine [Mass ratio] 18.5 mg/mg Normal [facility] Comment on above: Performed By: #### T SH, T7, URIC, LIPID, CMP #### [facility] [address] [place] [address] [address] Jose Greene TSHon 06-10-2021 TSH 2.493 uIU/mL Normal 0.470-4.680 [facility] Comment on above: Performed By: #### T SH, T7, URIC, LIPID, CMP #### [facility] [address] [place] [address] Dr. Jose Greene TSH RANGE SEE BELOW Normal [facility] Comment on above: Result Comment: <0.3 4 UIU/ml HYPERTHYROID 0.34-5.60 UIU/ml EUTHYROID >5.60 UIU/ml HYPOTHYROID Performed By: #### T SH, T7, URIC, LIPID, CMP #### [facility] [address] [place] [address] Dr. Jose Greene URIC ACID SERUMon 06-10-2021 Urate [Mass/Vol] 5.1 mg/dL Normal 3.5-8.5 [facility] Comment on above: Performed By: #### T SH, T7, URIC, LIPID, CMP #### [facility] [address] [place] [address] Dr. Jose Greene VITAMIN D 25 OHon 06-10-2021 VIT D 25-OH 44.2 ng/mL Normal [facility] Comment on above: Performed By: #### P EVELIN, VITAD ####[facility] [address] [place], [place] [address]Dr. Jose Greene VIT D RANGES SEE BELOW Normal [facility] Comment on above: Result Comment: <20 ng/mL Vit D deficient 20 - <30 ng/mL Vit D insufficient 30 - 100 ng/mL Vit D sufficient >100 ng/mL Potential Toxicity Performed By: #### P JONNIEC, VITAD ####[facility] [address] [place] [address]Dr. Jose Greene MRI SHOULDER ARTHROGRAMon MRI SHOULDER [...] the supraspinatus tendon without disruption or retraction. [place] within the anterolateral humeral head consistent with [...] by: SOLIS CRUZ Date: 2020-10-28 06:58 Normal [facility] XR ARTHRO SHLD RTon 10-28-19 21 XR [...] by: SOLIS CRUZ Date: 2020-10-27 15:45 Normal [facility] MR knee LT wo conon 05-09-19 21 MR knee LT wo con [facility] [place] [address] MRI Report Signed Patient: Jim Guerrier MR#: [id number] 18 : 1955 Acct:[id number] Age/Sex: 65 / M ADM Date: 05/08/20 Loc: [facility] Room: Type: [facility] Attending Dr: Christian Caban MD Ordering Provider: [...] Kelvin Salazar M.D.05/08/2020 2:34 PM Dictation Location: [place] [address] Transcribed By: [facility] 05/08/20 1434 Dictated By: Kelvin Salazar II, MD 05/08/20 1423 Signed By: 05/08/20 1434 Normal [facility] XR knee LT 4V*on 04-28-2020 XR knee LT 4V* [facility] [place] [address] XRay Report Signed Patient: Jim Guerrier MR#: [id number] [birth year] : 1955 Acct:[id number] Age/Sex: 65 / M ADM Date: 04/28/20 Loc: XD Room: Type: [facility] Attending Dr: Christian Caban MD Ordering Provider: [...] Paul Gorman M.D.04/28/2020 12:09 PM Dictation Location: [place] [address] Transcribed By: [facility] 04/28/20 1209 Dictated By: Paul Gorman MD 04/28/20 1206 Signed By: 04/28/20 1209 [facility] Encounters Encounter Date Encounter Type Care [...] Comment on above: Performed By: #### P [facility], VITAD ####[facility] [address] [place], [place] [address]KgCharley Jose Greene Payers Date Payer Category Payer Medicare [id number] 1961 Private Health Insurance [facility] [id number] 1961 Unknown [id number] 1955 Unknown [id number] 2.16.84 [id number] 1955 Unknown [id number] 2.16.84 [id number] 1955 Unknown [id number] 2.16.84 [id number] 1955 Unknown [id number] 2.16.84 [id number] Clinical Note 10-07-2020 Note Date & Type [...] authenticated by: SOLIS CRUZ Date: 2020-10-07 15:49 [facility] Summary Purpose Family History No Family History Records FoundNo Family History Records Found Advance Directives No Advanced Directives Records FoundNo Advanced Directives Records Found Additional Source Comments (unrecognized sect ion and content) No Status Records FoundNo Status Records Found INFORMATION SOURCE (unrecogn ized section and content) DATE CREATED AUTHOR 04/04/2021 [facility] DATE CREATED AUTHOR AUTHOR'S ORGANIZ ATION 06/25/2021 [facility] FOR RECORDS PERTAINING TO PATIENTS WHO ARE [...] BE BASED ON THE PRIMARY CLINICAL RECORDS. [facility] [email or web address] [facility]. provides no warranty or guarantee of the accuracy or completeness of information in this document.
[2023-07-19 15:56] LABS: Internal Control Within Normal Limits; Occult Blood Positive
== END 2023-07-19 12:15 | disposition home or self-care (01) ==
LOC: LAB 12:14
PROVIDERS: PCP Family Medicine; Visit Provider Family Medicine
DX: M96.1 Postlaminectomy syndrome, not elsewhere classified (principal); E78.1 Pure hyperglyceridemia; N31.9 Neuromuscular dysfunction of bladder, unspecified; E78.5 Hyperlipidemia, unspecified; R73.09 Other abnormal glucose; Z12.12 Encounter for screening for malignant neoplasm of rectum
CPT/HCPCS: G0328

== ENCOUNTER 2023-09-26 12:52 | Outpatient (OUT) | payer MEDICARE, OTHER, SELFPAY | END 2023-09-26 12:53 | disposition home or self-care (01) | LOC: PST 12:53 | PROVIDERS: PCP Family Medicine; Visit Provider Surgery | DX: Z01.818 Encounter for other preprocedural examination (principal); R19.5 Other fecal abnormalities; Z86.010 Personal history of colon polyps ==

== ENCOUNTER 2023-11-01 06:26 | Day surgery (SDC) | payer MEDICARE, OTHER, SELFPAY ==
--- NOTE | 2023-11-01 | OP_ITS ---
OPERATION DATE: 11/01/2023 PREOPERATIVE DIAGNOSIS: Personal history of colon polyps, positive fecal occult blood test. POSTOPERATIVE DIAGNOSIS: Ascending colon polyp x1, descending colon polyps x2, as well as flat, irregular sigmoid polyp and moderate sigmoid diverticulosis. PROCEDURE: Colonoscopy to cecum with cold snare polypectomy x3, as well as biopsy of sigmoid polyp x2. SURGEON: Piotr Sherman M.D. ANESTHESIA: Monitored anesthesia care. ESTIMATED BLOOD LOSS: Less than 1 mL. INDICATIONS AND CONSENT: Patient is a 68-year-old male with a personal history of colon polyps, who was recently found to have positive fecal occult blood test. Indications, risks, benefits, alternatives of proceeding with colonoscopy were explained extensively to the patient, including the risks of bleeding, colon perforation or anesthetic complications. All of his questions were answered. Informed consent was obtained. PROCEDURE: Patient brought to the operating room, placed in the left lateral decubitus position. Monitored anesthesia care was provided. Rectal exam was performed which showed no masses or blood. The scope was inserted into the anal canal. Under direct visualization was advanced. It was advanced to the cecum where cecal markings were clearly identified. There was noted to be a fair prep with some brown stool and semi-solid stool throughout the colon that was partially irrigated clear. Upon withdrawal of the scope, mucosal surfaces were carefully examined. Within the proximal ascending colon, there was noted to be a 4 mm sessile polyp that was removed with cold snare with good hemostasis. Within the descending colon, there were two adjacent polyps, 5 and 4 mm, that were removed with cold snare with good hemostasis. Within the sigmoid colon, there was noted to be a moderate amount of diverticulosis without inflammatory changes or scarring. Approximately 60 cm from the anal verge, there was noted to be a flat, irregular polyp that was around the fold. There was no ulceration or bleeding. Several biopsies were obtained with cold biopsy forceps with good hemostasis. There was a large amount of liquid stool, as well as some semi- solid stool in the area, which made visualization more difficult. It was felt that it would require a lift technique for removal, due to the flap nature of the polyp. The scope was retroflexed in the anal canal. There were prominent rectal veins noted. No significant hemorrhoidal disease. Scope was then withdrawn. Patient tolerated procedure well, was sent to recovery room in good condition. Will require colonoscopy within six months for attempted removal of the sigmoid polyp. CC: Gelacio Karimi
--- OUTSIDE RECORDS SUMMARY | 2023-11-01 06:30 | XMS_ITS | CCD ---
Author Organization [facility] Care Team Providers Care Pharmacy Billing Adjudicator Name Role Phone ROHIT, DR GONZALES Admitting Unavailable ROHIT, DR GONZALES Attending Unavailable KINGSTONY, DR GONZALES Consulting Unavailable KINGSTONY, DR GONZALES Primary Care Unavailable ZIEBER, DR SOLIS Adams Consulting Unavailable KINGSTONY, DR GONZALES Primary Care Unavailable KINGSTONY, DR GONZALES Admitting Unavailable KINGSTONY, DR GONZALES Attending Unavailable KINGSTONY, DR GONZALES Consulting Unavailable Matamoros, Verona Consulting Unavailable ROHIT, DR GONZALES Primary Care Unavailable ROHIT, DR GONZALES Admitting Unavailable KINGSTONY, DR GONZALES Attending Unavailable HOY, DR GONZALES Consulting Unavailable KINGSTONY, DR GONZALES Primary Care Unavailable HOY, DR GONZALES Admitting Unavailable HOY, DR GONZALES Attending Unavailable KINGSTONY, DR GONZALES Consulting Unavailable ZIEBMK, DR SOLIS Adams Consulting Unavailable Christian Bee Primary Care Physician Piotr BEACH Attending Unavailable Christian Bee Referring Unavailable Medications Current Medications Medication Drug Class(es) Dates Sig (Normalized) Sig (Original) Acetaminophen / HYDROcodone (1 source) Opioid Agonist Start: 02-02-2015 take 1 tablet by mouth every six hours as needed for pain [place] 325 mg-10 mg oral tablet 1 tab(s), Oral, q6hr as needed for pain, Refill(s) 0, Pain Start Date: 02/02/15 Status: Ordered fenofibrate 160 mg oral tablet (1 source) Peroxisome Proliferator Receptor alpha Agonist Start: 07-25-2023 take 1 tablet by mouth once daily fenofibrate 160 mg oral tablet 160 mg = 1 tab(s), Oral, Daily, Refills(s) 0 Start Date: 07/25/23 Status: Ordered SUMAtriptan 100 mg oral tablet (1 source) Serotonin-1b and Serotonin-1d Receptor Agonist Start: 06-11-2024 take 1 tablet by mouth once Imitrex 100 mg Tab 100 mg = 1 tab(s), Oral, Once, Refills(s) 0 Start Date: 07/25/23 Status: Ordered Problems Active Problems Problem Classification Problem Date Documented Da te Episodic/Chronic Chronic obstructive pulmonary disease and bronchiectasis (4 sources) Bronchitis, not specified as acute or chronic; Translations: [BRONCHITIS NOT SPEC ACUTE/CHRON] Onset: 06-21-2021 Episodic Diabetes mellitus without complication (1 source) Other abnormal glucose; Translations: [OTHER ABNORMAL GLUCOSE] Onset: 06-11-2021 Episodic Disorders of lipid metabolism (6 sources) Pure hyperglyceridemia; Translations: [Hyperlipidemia, unspecified] Onset: 06-10-2021 Chronic Diverticulosis and diverticulitis (1 source) Diverticular disease 07-25-2023 Chronic Headache; including migraine (1 source) Migraine 07-25-2023 Chronic Nutritional deficiencies (1 source) Vitamin D deficiency, unspecified; Translations: [VITAMIN D DEFICIENCY UNSPECIFIED] Onset: 06-11-2021 Chronic Other and unspecified benign neoplasm (2 sources) History of polyp of colon; Translations: [Personal history of colonic polyps] Onset: 08-23-2023 Episodic Other diseases of bladder and urethra (1 source) Neurogenic bladder 07-25-2023 Chronic Other gastrointestinal disorders (1 source) Abnormal feces; Translations: [Other fecal abnormalities] Onset: 08-23-2023 Episodic Other gastrointestinal disorders (1 source) Occult blood in stools 07-25-2023 Episodic Other nervous system disorders (1 source) Chronic pain due to injury 07-25-2023 Chronic Other nutritional; endocrine; and metabolic disorders (1 source) Body mass index 30+ - obesity 08-23-2023 Chronic Other nutritional; endocrine; and metabolic disorders (1 source) Obesity caused by energy imbalance 07-25-2023 Chronic Other screening for suspected conditions (not mental disorders or infectious disease) (2 sources) Encounter for screening for malignant neoplasm of prostate; Translations: [Encounter for screening for malignant neoplasm of rectum] Onset: 06-11-2021 Episodic Spondylosis; intervertebral disc disorders; other back problems (1 source) Lumbar post-laminectomy syndrome 07-25-2023 Chronic Unclassified (1 source) LOW BACK PAIN, UNSPECIFIED; [...] Test Name Value Interpretation Reference Range Facility Ambulatory Visit Summaryon 0 08-23-2023 Ambulatory Visit Summary Ambulatory Visit Summary JIM GUERRIER :1955 Visit Date:08/23/2023 Ambulatory Visit Instructions Your Diagnosis Personal history of colonic polyps Positive occult stool blood test Your Care Team Attending Physician - BAYLEE MILLARD, Piotr Adams Primary Care Physician - Rohit MILLARD, Christian Referring Physician - Christian Bee MD This Is Your Medications List Contact prescribing physician if questions or concerns acetaminophen-hydrocod one ([place] 325 mg-10 mg oral tablet) fenofibrate (fenofibrate 160 mg oral tablet) sumatriptan (Imitrex 100 mg Tab) Procedures Performed Colonoscopy (02/02/2015), Appendectomy, Cervical discectomy, History of lumbar laminectomy, Repair of left inguinal hernia, Repair of right inguinal hernia, Rotator cuff repair. Discharge Vitals Heart Rate (Peripheral) 72 Respiratory Rate 16 Blood Pressure 144/94 Height 172.72 cm Height 68 in Weight 91 kg Weight 200.2 lb BMI 30.5 Medications What How Much When Instructions Unchanged acetaminophen-hydrocod one ([place] 325 mg-10 mg oral tablet) 1 Tablets By Mouth Every 6 hours as needed for as needed for pain Contact prescribing physician if questions or concerns Unchanged fenofibrate (fenofibrate 160 mg oral tablet) 1 Tablets By Mouth Every day Contact prescribing physician if questions or concerns Unchanged sumatriptan (Imitrex 100 mg Tab) 1 Tablets By Mouth Once Contact prescribing physician if questions or concerns Allergies No Known Allergies Problems Ongoing - Any problem that you are currently receiving treatment for. BMI 30.0-30.9,adult Chronic pain due to trauma Diverticulosis Hypertriglyceridemia Lumbar post-laminectomy syndrome Migraine Neurogenic urinary bladder Obesity due to excess calories Personal history of colonic polyps Positive occult stool blood test Patient Survey You may receive a survey via text or e-mail asking about your office visit. Please share your experience with us by completing your survey. We appreciate your feedback and thank you for choosing us for your care. [facility] Ambulatory Visit Summary Ambulatory Visit Summary JIM GUERRIER :1955 Visit Date:08/23/2023 Ambulatory Visit Instructions Your Diagnosis Personal history of colonic polyps Positive occult stool blood test Your Care Team Attending Physician - Piotr BEACH MD Primary Care Physician - Christian Bee MD Referring Physician - Christian Bee MD This Is Your Medications List Contact prescribing physician if questions or concerns acetaminophen-hydrocod one ([place] 325 mg-10 mg oral tablet) fenofibrate (fenofibrate 160 mg oral tablet) sumatriptan (Imitrex 100 mg Tab) Procedures Performed Colonoscopy (02/02/2015), Appendectomy, Cervical discectomy, History of lumbar laminectomy, Repair of left inguinal hernia, Repair of right inguinal hernia, Rotator cuff repair. Discharge Vitals Heart Rate (Peripheral) 72 Respiratory Rate 16 Blood Pressure 144/94 Height 172.72 cm Height 68 in Weight 91 kg Weight 200.2 lb BMI 30.5 Medications What How Much When Instructions Unchanged acetaminophen-hydrocod one ([place] 325 mg-10 mg oral tablet) 1 Tablets By Mouth Every 6 hours as needed for as needed for pain Contact prescribing physician if questions or concerns Unchanged fenofibrate (fenofibrate 160 mg oral tablet) 1 Tablets By Mouth Every day Contact prescribing physician if questions or concerns Unchanged sumatriptan (Imitrex 100 mg Tab) 1 Tablets By Mouth Once Contact prescribing physician if questions or concerns Allergies No Known Allergies Problems Ongoing - Any problem that you are currently receiving treatment for. BMI 30.0-30.9,adult Chronic pain due to trauma Diverticulosis Hypertriglyceridemia Lumbar post-laminectomy syndrome Migraine Neurogenic urinary bladder Obesity due to excess calories Personal history of colonic polyps Positive occult stool blood test Patient Survey You may receive a survey via text or e-mail asking about your office visit. Please share your experience with us by completing your survey. We appreciate your feedback and thank you for choosing us for your care. [facility] Physician Referralon 024 Physician Referral [phone] [id number] [facility] LEGIONELLA PNUEMOPHILA ABon 06-24-2021 Legionell P. Abs <0.91 Normal 0.00-0.90 [facility] Comment on above: Result Comment: Nega tive <0.91 Equivocal 0.91 - 1.09 Positive >1.09 This assay detects IgG/IgM/IgA antibodies to L. pneumophila Groups 1-6 by the EIA method. Performed By: #### L EGIONA #### [facility] [address] [address] [address] Jose Greene H PYLORI ANTIBODY IGGon 06-13 H. PYLORI IGG ABS 0.28 Index Value Normal 0.00-0.79 [facility] Comment on above: Result Comment: Nega tive <0.80 Equivocal 0.80 - 0.89 Positive >0.89 Performed By: #### H PYLLC ####[facility] [address] [address]Dr. Jose Greene TOXOPLASMA GONDII IGG ABon 0 06-22-2021 Toxoplasma gondii Ab,IgG,Qn <3.0 Normal 0.0-7.[address] [facility] Comment on above: Result Comment: Nega tive <7.2 Equivocal 7.2 - 8.7 Positive >8.7 Performed By: #### T OXPIGG ####[facility] [address] [address]Dr. Jose Greene XR CHEST 2 Von 06-21-2021 [...] VERONA MATAMOROS Date: 2021-06-21 12:58 Normal [facility] INSULINon 06-11-2021 Insulin 17.8 uIU/mL Normal 2.6-24.[address] [facility] Comment on above: Performed By: #### I NSULIN ####[facility] [address] [address]Dr. Jose Greene CBC AUTO DIFFon 06-10-2021 BASO # 0.1 103/ul Normal 0.0-0.1 [facility] Comment on above: Performed By: #### C BC ####[facility] [address] [id number]. Jose Greene Basophils/100 WBC (Bld) 0.9 % Normal 0.2-2.0 [facility] Comment on above: Performed By: #### C BC ####[facility] [address] [address]Dr. Jose Jc EO # 0.1 103/ul Normal 0.0-0.7 [facility] Comment on above: Performed By: #### C BC ####[facility] [address] [place], [place] [address]Dr. Jose Jc Eosinophils/100 WBC (Bld) 1.4 % Normal 0.9-7.0 [facility] Comment on above: Performed By: #### C BC ####[facility] [address] [place], [place] [address]Dr. Jose Greene Erythrocyte distribution width (RBC) [Ratio] 12.8 % Normal 11.0-15.0 [facility] Comment on above: Performed By: #### C BC ####[facility] [address] [place], [place] [address]Dr. Jose Greene Hematocrit (Bld) [Volume fraction] 47.3 % Normal 42.0-54.0 [facility] Comment on above: Performed By: #### C BC ####[facility] [address] [place], [place] [address]Dr. Jose Greene Hemoglobin (Bld) [Mass/Vol] 15.7 g/dL Normal 14.0-18.0 [facility] Comment on above: Performed By: #### C BC ####[facility] [address] [address]Dr. Maurajany Greene IG # 0.05 10e3/ul Critically high 0.00-0.03 [facility] Comment on above: Performed By: #### C BC ####[facility] [address] [id number]. Jose Greene IG % 0.8 % Critically high 0.0-0.5 [facility] Comment on above: Performed By: #### C BC ####[facility] [address] [id number]. Jose Jc LYMPH # 2.2 103/ul Normal 1.2-3.8 [facility] Comment on above: Performed By: #### C BC ####[facility] [address] [id number]. Jose Jc Lymphocytes/100 WBC (Bld) 35.1 % Normal 20.5-60.0 [facility] Comment on above: Performed By: #### C BC ####[facility] [address] [id number]. Jose Jc MANUAL DIFF REQ NO Normal [facility] Comment on above: Performed By: #### C BC ####[facility] [address] [id number]. Jose Jc MCH (RBC) [Entitic mass] 30.9 pg Normal 25.9-34.0 [facility] Comment on above: Performed By: #### C BC ####[facility] [address] [id number]. Jose Greene MCHC (RBC) [Mass/Vol] 33.2 g/dL Normal 29.9-35.2 [facility] Comment on above: Performed By: #### C BC ####[facility] [address] [id number]. Jose Jc MCV (RBC) [Entitic vol] 93.1 fL Normal 80.0-94.0 [facility] Comment on above: Performed By: #### C BC ####[facility] [address] [place], [place] [address]Dr. Maurajany Greene MONO # 0.7 103/ul Normal 0.3-0.8 [facility] Comment on above: Performed By: #### C BC ####[facility] [address] [id number]. Jose Greene Monocytes/100 WBC (Bld) 11.0 % Normal 1.7-12.0 [facility] Comment on above: Performed By: #### C BC ####[facility] [address] [id number]. Jose Greene NEUT # 3.2 103/ul Normal 1.4-6.5 [facility] Comment on above: Performed By: #### C BC ####[facility] [address] [id number]. Jose Greene Neutrophils/100 WBC (Bld) 50.8 % Normal 43.0-75.0 [facility] Comment on above: Performed By: #### C BC ####[facility] [address] [address]Dr. Jose Greene Platelet mean volume (Bld) [Entitic vol] 9.8 fL Normal 9.5-13.5 [facility] Comment on above: Performed By: #### C BC ####[facility] [address] [id number]. Jose Greene PLT 254 103/ul Normal 150-450 [facility] Comment on above: Performed By: #### C BC ####[facility] [address] [address]Dr. Jose Greene RBC 5.08 106/ul Normal 4.70-6.10 [facility] Comment on above: Performed By: #### C BC ####[facility] [address] [id number]. Jose Greene WBC 6.4 103/ul Normal 4.0-11.0 [facility] Comment on above: Performed By: #### C BC ####[facility] [address] [address]Dr. Jose Greene FREE THYROXINE INDEX T7on FTI 3.23 Normal [facility] Comment on above: Performed By: #### T SH, T7, URIC, LIPID, CMP #### [facility] [address] [address] [address] Jose Greene T3U 34.0 % Normal 23.5-40.[address] [facility] Comment on above: Performed By: #### T SH, T7, URIC, LIPID, CMP #### [facility] [address] [address] [address] Jose Greene T4 [Mass/Vol] 9.50 ug/dL Normal 4.50-12.10 [facility] Comment on above: Performed By: #### T SH, T7, URIC, LIPID, CMP #### [facility] [address] [address] [address] Jose Greene GLYCOHEMOGLOBIN A1Con 2021 ADA RECOMMENDATION SEE BELOW Normal [facility] Comment on above: Result Comment: ADA RECOMMENDED LIMIT 4.0 - 6.0 ADA THERAPEUTIC TARGET < 7.0 ACTION SUGGESTED > 7.0 Performed By: #### A 1C ####[facility] [address] [address]Dr. Jose Greene Glucose [Mass/Vol] 117 mg/dL Normal [facility] Comment on above: Performed By: #### A 1C ####[facility] [address] [address]Dr. Jose Greene HbA1c (Bld) [Mass fraction] 5.7 % Normal 4.5-6.[address] [facility] Comment on above: Performed By: #### A 1C ####[facility] [address] [address]Dr. Jose Greene LIPID PROFILEon 06-10-2021 CHOL-HDL RATIO NORM SEE BELOW Normal [facility] Comment on above: Result Comment: 3.3 - 4.4 LOW RISK 4.4 - 7.1 AVERAGE RISK 7.1 - 11.0 MODERATE RISK >11.0 HIGH RISK Performed By: #### T SH, T7, URIC, LIPID, CMP #### [facility] [address] [address] [address] Jose Greene Cholesterol [Mass/Vol] 180 mg/dL Normal <=[address] [facility] Comment on above: Performed By: #### T SH, T7, URIC, LIPID, CMP #### [facility] [address] [address] [address] Jose Greene Cholesterol in HDL [Mass/Vol] 32 mg/dL Critically low 40-[address] [facility] Comment on above: Performed By: #### T SH, T7, URIC, LIPID, CMP #### [facility] [address] [address] [address] Jose Greene Cholesterol in LDL [Mass/Vol] 117.6 mg/dL Normal [facility] Comment on above: Performed By: #### T SH, T7, URIC, LIPID, CMP #### [facility] [address] [address] [address] Jose Greene Cholesterol.total/Ch olesterol in HDL [Mass ratio] 5.6 {ratio} Normal [facility] Comment on above: Performed By: #### T SH, T7, URIC, LIPID, CMP #### [facility] [address] [address] [address] Jose Greene HDL NORMAL > or = 60 mg/dl - LO W CARDIOVASCULAR RISK <40 mg/dl - HIGH CARDIOVASCULAR RISK Normal [facility] Comment on above: Performed By: #### T SH, T7, URIC, LIPID, CMP #### [facility] [address] [address] [address] Jose Greene LDL CALC NORMAL SEE BELOW Normal [facility] Comment on above: Result Comment: <100 mg/dl OPTIMAL 100 - 129 mg/dl NEAR OR ABOVE OPTIMAL 130 - 159 mg/dl BORDERLINE HIGH 160 - 189 mg/dl HIGH >190 mg/dl VERY HIGH Performed By: #### T SH, T7, URIC, LIPID, CMP #### [facility] [address] [address] [address] Jose Greene Triglyceride [Mass/Vol] 152 mg/dL Critically high <=150 [facility] Comment on above: Performed By: #### T SH, T7, URIC, LIPID, CMP #### [facility] [address] [address] [address] Jose Greene VLDL CALC 30.4 mg/dL Normal [facility] Comment on above: Performed By: #### T SH, T7, URIC, LIPID, CMP #### [facility] [address] [place] [address] Dr. Jose Greene OCC BLD IMMUNO SCREENon 05-15 OCCULT BLOOD Negative Normal NEGATIVE [facility] Comment on above: Performed By: #### O BSCRN #### [facility] [address] [place] [address] Dr. Jose Greene PROF 14(COMP METB)on 022 Albumin [Mass/Vol] 4.5 g/dL Normal 3.4-5.[address] [facility] Comment on above: Performed By: #### T SH, T7, URIC, LIPID, CMP #### [facility] [address] [place] [address] Dr. Jose Greene Albumin/Globulin [Mass ratio] 1.4 {ratio} Normal [facility] Comment on above: Performed By: #### T SH, T7, URIC, LIPID, CMP #### [facility] [address] [place] [address] Dr. Jose Greene ALP [Catalytic activity/Vol] 55 U/L Normal 46-[address] [facility] Comment on above: Performed By: #### T SH, T7, URIC, LIPID, CMP #### [facility] [address] [place] [address] Dr. Jose Greene ALT [Catalytic activity/Vol] 42 U/L Normal 16-[address] [facility] Comment on above: Performed By: #### T SH, T7, URIC, LIPID, CMP #### [facility] [address] [place] [address] Dr. Jose Greene Anion gap [Moles/Vol] 11.5 mmol/L Normal [facility] Comment on above: Performed By: #### T SH, T7, URIC, LIPID, CMP #### [facility] [address] [place] [address] Dr. Jose Greene AST [Catalytic activity/Vol] 28 U/L Normal 15-[address] [facility] Comment on above: Performed By: #### T SH, T7, URIC, LIPID, CMP #### [facility] [address] [address] [address] Jose Greene Bilirubin [Mass/Vol] 0.5 mg/dL Normal 0.2-1.[address] [facility] Comment on above: Performed By: #### T SH, T7, URIC, LIPID, CMP #### [facility] [address] [place] [address] Dr. Jose Greene Calcium [Mass/Vol] 9.4 mg/dL Normal 8.5-10.[address] [facility] Comment on above: Performed By: #### T SH, T7, URIC, LIPID, CMP #### [facility] [address] [place] [address] Dr. Jose Greene Chloride [Moles/Vol] 102 mmol/L Normal 98-[address] [facility] Comment on above: Performed By: #### T SH, T7, URIC, LIPID, CMP #### [facility] [address] [place] [address] Dr. Jose Greene CO2 [Moles/Vol] 28.8 mmol/L Normal 21.0-32.0 [facility] Comment on above: Performed By: #### T SH, T7, URIC, LIPID, CMP #### [facility] [address] [place] [address] Dr. Jose Greene Creatinine [Mass/Vol] 0.92 mg/dL Normal 0.70-1.[address] [facility] Comment on above: Performed By: #### T SH, T7, URIC, LIPID, CMP #### [facility] [address] [place] [address] Dr. Jose Greene EGFR-AF UZBEK >=60 Normal >=60 [facility] Comment on above: Performed By: #### T SH, T7, URIC, LIPID, CMP #### [facility] [address] [place] [address] Dr. Jose Greene EGFR-NON AF UZBEK >=60 Normal >=[address] [facility] Comment on above: Performed By: #### T SH, T7, URIC, LIPID, CMP #### [facility] [address] [place] [address] Dr. Jose Greene Globulin (S) [Mass/Vol] 3.2 g/dL Normal [facility] Comment on above: Performed By: #### T SH, T7, URIC, LIPID, CMP #### [facility] [address] [place] [address] Dr. Jose Greene Glucose [Mass/Vol] 107 mg/dL Critically high 74-106 [facility] Comment on above: Performed By: #### T SH, T7, URIC, LIPID, CMP #### [facility] [address] [place] [address] Dr. Jose Greene Potassium [Moles/Vol] 4.3 mmol/L Normal 3.5-5.[address] [facility] Comment on above: Performed By: #### T SH, T7, URIC, LIPID, CMP #### [facility] [address] [place] [address] Dr. Jose Greene Protein [Mass/Vol] 7.7 g/dL Normal 6.1-8.2 [facility] Comment on above: Performed By: #### T SH, T7, URIC, LIPID, CMP #### [facility] [address] [place] [address] Dr. Jose Greene Sodium [Moles/Vol] 138 mmol/L Normal 136-145 [facility] Comment on above: Performed By: #### T SH, T7, URIC, LIPID, CMP #### [facility] [address] [place] [address] Dr. Jose Greene Urea nitrogen [Mass/Vol] 17.0 mg/dL Normal 7.0-18.[address] [facility] Comment on above: Performed By: #### T SH, T7, URIC, LIPID, CMP #### [facility] [address] [place] [address] Dr. Jose Greene Urea nitrogen/Creatinine [Mass ratio] 18.5 mg/mg Normal [facility] Comment on above: Performed By: #### T SH, T7, URIC, LIPID, CMP #### [facility] [address] [place] [address] Dr. Jose Greene TSHon 06-10-2021 TSH 2.493 uIU/mL Normal 0.470-4.680 [facility] Comment on above: Performed By: #### T SH, T7, URIC, LIPID, CMP #### [facility] [address] [address] [address] Jose Greene TSH RANGE SEE BELOW Normal [facility] Comment on above: Result Comment: <0.3 4 UIU/ml HYPERTHYROID 0.34-5.60 UIU/ml EUTHYROID >5.60 UIU/ml HYPOTHYROID Performed By: #### T SH, T7, URIC, LIPID, CMP #### [facility] [address] [address] [address] Jose Greene URIC ACID SERUMon 06-10-2021 Urate [Mass/Vol] 5.1 mg/dL Normal 3.5-8.5 [facility] Comment on above: Performed By: #### T SH, T7, URIC, LIPID, CMP #### [facility] [address] [address] [address] Jose Greene VITAMIN D 25 OHon 06-10-2021 VIT D 25-OH 44.2 ng/mL Normal [facility] Comment on above: Performed By: #### P SASC, VITAD ####[facility] [id number] [id number]. Jose Greene VIT D RANGES SEE BELOW Normal [facility] Comment on above: Result Comment: <20 ng/mL Vit D deficient 20 - <30 ng/mL Vit D insufficient 30 - 100 ng/mL Vit D sufficient >100 ng/mL Potential Toxicity Performed By: #### P SASC, VITAD ####[facility] [id number] [id number]. Jose Greene MRI SHOULDER ARTHROGRAMon MRI SHOULDER [...] the supraspinatus tendon without disruption or retraction. [place] within the anterolateral humeral head consistent with [...] by: SOLIS CRUZ Date: 2020-10-28 06:[address] [facility] XR ARTHRO SHLD RTon 10-28-19 21 XR ARTHRO LD RT EXAMINATION: XR ARTH RO SHLD RT [...] by: SOLIS CRUZ Date: 2020-10-27 15:[address] [facility] MR knee LT wo conon 05-09-19 MR knee LT wo con [facility] [place] [address] MRI Report Signed Patient: Jim Guerrier MR#: [id number] 18 : 1955 Acct:[id number] Age/Sex: 65 / M ADM Date: 05/08/20 Loc: [facility] Room: Type: [facility] Attending Dr: Christian Bee MD Ordering Provider: Christian Bee MD Date of Service: 05/08/20 MR/MR knee LT wo con: LT. KNEE PAIN Copies to: Christian Bee MD MR knee LT wo con 05/08/2020 [...] Kelvin Salazar M.D.05/08/2020 2:34 PM Dictation Location: [place] [address] Transcribed By: [facility] 05/08/20 1434 Dictated By: Kelvin Salazar II, MD 05/08/20 1423 Signed By: 05/08/20 1434 Normal [facility] XR knee LT 4V*on 04-28-2020 XR knee LT 4V* [facility] [address] XRay Report Signed Patient: Jim Guerrier MR#: [id number] [birth year] : 1955 Acct:[id number] Age/Sex: 65 / M ADM Date: 04/28/20 Loc: XD Room: Type: [facility] Attending Dr: Christian Bee MD Ordering Provider: Christian Bee MD Date of Service: 04/28/20 XR/XR knee LT 4V*: M23.9 Copies to: Christian Bee MD CLINICAL HISTORY: Left knee gave out [...] Paul Gorman M.D.04/28/2020 12:09 PM Dictation Location: [facility]- Transcribed By: [facility] 04/28/20 1209 Dictated By: Paul Gorman MD 04/28/20 1206 Signed By: 04/28/20 1209 [facility] Vital Signs Date Time Vital Sign Value Performing Clinician Naye reynoso 08-23-2023 14:37-0400 Blood Pressure Location [facility] 08-23-2023 14:37-0400 Diastolic blood pressure 94 mm[Hg] [facility] [place] [facility] 08-23-2023 14:37-0400 Heart rate 72 /min [place] [place] [facility] 08-23-2023 14:37-0400 Respiratory rate 16 /min [place] [place] [facility] 08-23-2023 14:37-0400 Systolic blood pressure 144 mm[Hg] [place] [place] [facility] Encounters Encounter Date Encounter Type Care Provider Facility Start: 08-23-2023 End: 08-23-2023 ambulatory [place] [place] Facility: [facility] Start: 08-23-2023 End: 08-23-2023 Patient encounter procedure [facility] Start: 07-21-2023 ambulatory [place] [place] Facility:[facility] Start: 06-21-2021 End: 06-22-[address] CHRISTIAN BEE Facility: Start: 06-10-2021 End: 06-11-[address] CHRISTIAN BEE Facility:[facility] Start: 10-27-2020 End: 10-27-[address] CHRISTIAN BEE Facility:[facility] Start: 10-07-2020 End: 10-08-[address] CHRISTIAN BEE Facility:[facility] Procedures Date Procedure Procedure Detail Performing Clinician Start: 06-10-[address] DEION BEE Comment on above: Performed By: #### P [facility], VITAD ####[address] [place] [id number] [place] [id number] Greene Start: 02-02-2015 Colonoscopy [facility] Appendectomy [facility]r N[facility] Excision of cervical intervertebral disc [facility] History of lumbar laminectomy [facility] Comment on above: x 2 Repair of left ingui nal hernia P[facility] Repair of musculoten dinous cuff of shoulder [facility] Repair of right ingu inal hernia [facility] Immunizations Immunization Date Immunization Notes Care Provider Lilia navas 12-02-2020 SARS-CoV-2 (COVID-19 ) mRNA BNT-162b2 vax [facility] 05-29-2020 SARS-CoV-2 (COVID-19 ) mRNA BNT-162b2 vax [facility] 05-05-2020 SARS-CoV-2 (COVID-19 ) mRNA BNT-162b2 vax Piotr N[facility] Payers Date Payer Category Payer Unknown [id number] 2015 Unknown [id number] 1961 Medicare [id number] 1959 Private Health Insurance [facility] [id number] 1961 Unknown [id number] 1955 Unknown [id number] 2.16.84 [id number] 1955 Unknown [id number] 2.16.84 [id number] 1955 Unknown [id number] 2.16.84 [id number] 1955 Unknown [id number] 2.16.84 [id number] 1955 Unknown [id number] 2.16.8 [id number] 1955 Unknown [id number] 2.16.8 [id number] Social History Date Type Detail Facility Start: 08-23-2023 Tobacco smoking status Never s moked tobacco (finding) [facility] Tobacco smoking status Never [facility] Sex Assigned At Male [facility] Functional Status Date Assessment Result Facility 08-23-2023 Functional Status N/A [facility] Clinical Note 08-23-2023 Note Date & Type Note Facility 08-23-2023 Note [facility] Surgery Offi ce/Clinic Note Chief Complaint consultation for positive occult stool HPI Staff 68 year old male presents on consultation from Dr. Bee for positive occult stool. Denies abdominal or rectal pain. No rectal bleeding or change in bowel habits. Denies nausea or vomiting. No unexplained weight loss. Last colonoscopy completed 01/2015 with tubular adenoma x 2. No known family history of colon cancer. History of Present Illness 68 yo male with h/o hypertriglyceridemia, migraine headaches, neurogenic bladder, referred for positive fecal occult blood test; patient denies change in bms or gross blood in stools, no abd complaints; last colonoscopy 2014 with removal of 2 small tubular adenomas and sigmoid diverticulosis; abd operations significant for bilateral inguinal herniorrhaphies; no asa or NSAID use; no tobacco use; no fmhx of GI malignancy or IBD. Review of Systems PHQ Score Initial Depression Screen Score: 0 SCORE ROS - Provider Constitutional: no fever, no sweats, no weight loss. Eyes: no glasses, no blurred vision, no visual loss. ENMT: no dentures, no hoarseness, no swallowing difficulties, no hearing loss, no ear infection(s), no nose bleeds. Cardiovascular: normal blood pressure, no chest pain, regular heartbeat, no heart murmur. Respiratory: no shortness of breath, no cough, no asthma, no wheezing. Gastrointestinal: no nausea, no vomiting, no diarrhea, no constipation, no blood in stool, no change in bowel habits, no abdominal pain, no hepatitis. Genitourinary: no kidney stones, no urine infection, no dysuria. Musculoskeletal: no pain, no weakness. Skin: no changing moles, no rash, no skin lumps. Neurologic: no seizures, no epilepsy, no headache. Psychiatric: no emotional or psychiatric problem. Heme/Lymph: no bleeding problems, no anemia, no blood clots, no transfusions. Allergy/Immunologic: no swollen lymph nodes/glands, no IV drug abuse. Other: Additional ROS info: Except as noted in the above Review of Systems and in the History of Present Illness, all other systems have been reviewed and are negative or noncontributory. Physical Exam Vitals & Measurements HR: 72(Peripheral) RR: 16 BP: 144/94 HT: 68 in HT: 172.72 cm WT: 91 kg WT: 200.2 lb BMI: 30.5 HEENT: normal conjunctiva, sclera clear, no scleral icterus, EOM intact, PERRLA, oral mucosa moist without lesions. Neck: trachea midline, no mass, symmetric, no thyromegaly or nodules, no adenopathy Respiratory: lungs CTA, respirations non labored. Cardiovascular: regular rate and rhythm, no murmur, no pedal edema or varicosities. Gastrointestinal: obese, soft, non distended, no tenderness, no masses, no palpable hernias, diastasis recti no, no hepatosplenomegaly; normal bs Lymphatic: no cervical adenopathy, no surpraclavicular adenopathy. Musculoskeletal: normal gait, digits and nails without infection, nodes, cyanosis, clubbing. Skin: no rashes, no lesions, no ulcers, no subcutaneous nodules, induration. Psychiatric/Neuro: oriented to time, place, person, judgement normal, affect appropriate for age, insight intact, no focal deficits. Tests: labs reviewed, review of old records completed , Discussed surgical options, risks, and possible complications with patient. Assessment/Plan 1. Personal history of colonic polyps (Z86.010: Personal history of colonic polyps) plan colonoscopy under anesthesia, informed consent obtained. 2. Positive occult stool blood test (R19.5: Other fecal abnormalities) see #1 Follow-up No qualifying data available Problem List/Past Medical History Ongoing BMI 30.0-30.9,adult Chronic pain due to trauma Diverticulosis Hypertriglyceridemia Lumbar post-laminectomy syndrome Migraine Neurogenic urinary bladder Obesity due to excess calories Personal history of colonic polyps Positive occult stool blood test Historical No qualifying data Procedure/Surgical History Colonoscopy (02/02/2015), Appendectomy, Cervical discectomy, History of lumbar laminectomy, Repair of left inguinal hernia, Repair of right inguinal hernia, Rotator cuff repair. Medications fenofibrate 160 mg oral tablet, 160 mg= 1 tab(s), Oral, Daily Imitrex 100 mg Tab, 100 mg= 1 tab(s), Oral, Once [place] 325 mg-10 mg oral tablet, 1 tab(s), Oral, q6hr, PRN Allergies No Known Allergies Social History Alcohol - Denies Alcohol Use, 08/23/2023 Substance Abuse - Denies Substance Abuse, 08/23/2023 Tobacco Never (less than 100 in lifetime) Tobacco Use:. Never Smokeless Tobacco Use:., 08/23/2023 Family History Heart disease: Father. Primary malignant neoplasm of female breast: Sister. Immunizations Vaccine Date Status SARS-CoV-2 (COVID-19) mRNA BNT-162b2 vax 12/02/2020 Recorded SARS-CoV-2 (COVID-19) mRNA BNT-162b2 vax 05/29/2020 Recorded SARS-CoV-2 (COVID-19) mRNA BNT-162b2 vax 05/05/2020 Recorded [facility] Comment on above: Result Comment: Elec tronically Signed By: BAYLEE MILLARD, Piotr Rubio\Date and Time Signed: 08/23/23 15:02 EDT Clinical Note 10-07-2020 Note Date & Type [...] authenticated by: SOLIS CRUZ Date: 2020-10-07 15:[address] [facility] Evaluation + Plan note Note Date & Type Note Facility Evaluation + Plan note No data available for this section [facility] Hospital Discharge instructions Note Date & Type Note Facility Hospital Discharge instructions No data available for this section [facility] Progress note Note Date & Type Note Facility Progress note No data available for this section [facility] Summary Purpose Family History No Family History Records FoundNo Family History Records Found No data available for this section No Family History Records Found Advance Directives No Advanced Directives Records FoundNo Advanced Directives Records FoundNo Advanced Directives Records Found Additional Source Comments (unrecognized sect ion and content) No Status Records FoundNo Status Records FoundNo Status Records Found INFORMATION SOURCE (unrecogn ized section and content) DATE CREATED AUTHOR 04/04/2021 [facility] DATE CREATED AUTHOR AUTHOR'S ORGANIZ ATION 06/25/2021 [facility] DATE CREATED AUTHOR AUTHOR'S ORGANIZ ATION 08/30/2023 [facility] Patient Care team informatio n (unrecognized section and content) Personnel Name: Christian Bee MD Address: Address: [address] [place] [address] FOR RECORDS PERTAINING TO PATIENTS WHO ARE [...] BE BASED ON THE PRIMARY CLINICAL RECORDS. [facility] [employer] [facility]. provides no warranty or guarantee of the accuracy or completeness of information in this document.
[2023-11-01 06:50] VITALS: BP 144/90; PULSE 80; TEMP 36.1; O2SAT 98; BMI 29.0
[2023-11-01] MEDS: LACTATED RINGER'S SOLUTION 1,000 ML 50 ML IV (07:12)
[2023-11-01 08:46] VITALS: BP 97/58; PULSE 68; TEMP 36.1; O2SAT 98
[2023-11-01 09:01] VITALS: BP 120/81; PULSE 67; O2SAT 96
[2023-11-01 09:16] VITALS: BP 128/72; PULSE 70; O2SAT 96
== END 2023-11-01 09:18 | disposition home or self-care (01) ==
PROVIDERS: PCP Family Medicine; Visit Provider Surgery
PROC: (CPT 45380; principal; 2023-11-01 07:55)
DX: R19.5 Other fecal abnormalities (principal); D12.4 Benign neoplasm of descending colon; D12.5 Benign neoplasm of sigmoid colon; K63.5 Polyp of colon; Z86.010 Personal history of colon polyps; K57.30 Diverticulosis of large intestine without perforation or abscess without bleeding; N31.9 Neuromuscular dysfunction of bladder, unspecified; M54.16 Radiculopathy, lumbar region; E78.5 Hyperlipidemia, unspecified
CPT/HCPCS: 45380; 45385; 88305; J2704

== ENCOUNTER 2024-10-16 11:38 | Outpatient (OUT) | payer MEDICARE, SELFPAY ==
--- NOTE | 2024-10-16 11:49 | XR_ITS ---
The [address] [address] Patient Name: JIM PEARL MRN: [id number] date: 1955 Sex: M Assigned Patient Location: [facility] Current Patient Location: [facility] Accession/Order Number: [id number] Exam Date: 10/16/2024 11:52 Report Date: 10/16/2024 12:15 At the request of: CHRISTIAN CABAN MD Procedure: XR lumbar spine min 4V CLINICAL HISTORY: Right-sided back pain and burning for the past 1 to 2 weeks. THORACIC SPINE - 3 views: COMPARISON: Chest x-ray 06/15/2022 AP, lateral and swimmer's views were obtained. There is osteopenia. Subtle S-shaped scoliotic curvature is noted. There are minor chronic wedge deformities. There is no acute compression fracture or displacement. The pedicles are intact. Endplate spurring is seen. There is a lower cervical fusion plate. There are no paraspinal soft tissue abnormalities. XR/XR thoracic spine 3V IMPRESSION: OSTEOPENIA, SUBTLE SCOLIOSIS AND DEGENERATIVE CHANGES. NO ACUTE BONY FINDINGS. LUMBAR SPINE - 4 views COMPARISON: None AP, lateral and bilateral oblique views were obtained. The bony structures are osteopenic. There is thoracolumbar dextroscoliotic curvature. No acute compression fractures are noted. No displacement is seen. There is mild multilevel disc space narrowing and endplate spurring. There is mid and lower lumbar facet disease. No pars defects are identified. There is mild sclerosis at the SI joints. No paraspinal soft tissue abnormalities are seen. IMPRESSION: OSTEOPENIA, SCOLIOSIS AND DEGENERATIVE CHANGES. NO DEFINITE ACUTE BONY FINDINGS. Impression dictated by: Neisha Levine M.D. 10/16/2024 12:15 PM Dictation Location: [employer] Electronically authenticated by: [id number] Y Date: 10/16/2024 12:15
--- NOTE | 2024-10-16 11:49 | XR_ITS ---
The [address] [address] Patient Name: JIM PEARL MRN: [id number] date: 1955 Sex: M Assigned Patient Location: [facility] Current Patient Location: [facility] Accession/Order Number: [id number] Exam Date: 10/16/2024 11:52 Report Date: 10/16/2024 12:15 At the request of: CHRISTIAN CABAN MD Procedure: XR lumbar spine min 4V CLINICAL HISTORY: Right-sided back pain and burning for the past 1 to 2 weeks. THORACIC SPINE - 3 views: COMPARISON: Chest x-ray 06/15/2022 AP, lateral and swimmer's views were obtained. There is osteopenia. Subtle S-shaped scoliotic curvature is noted. There are minor chronic wedge deformities. There is no acute compression fracture or displacement. The pedicles are intact. Endplate spurring is seen. There is a lower cervical fusion plate. There are no paraspinal soft tissue abnormalities. XR/XR lumbar spine min 4V IMPRESSION: OSTEOPENIA, SUBTLE SCOLIOSIS AND DEGENERATIVE CHANGES. NO ACUTE BONY FINDINGS. LUMBAR SPINE - 4 views COMPARISON: None AP, lateral and bilateral oblique views were obtained. The bony structures are osteopenic. There is thoracolumbar dextroscoliotic curvature. No acute compression fractures are noted. No displacement is seen. There is mild multilevel disc space narrowing and endplate spurring. There is mid and lower lumbar facet disease. No pars defects are identified. There is mild sclerosis at the SI joints. No paraspinal soft tissue abnormalities are seen. IMPRESSION: OSTEOPENIA, SCOLIOSIS AND DEGENERATIVE CHANGES. NO DEFINITE ACUTE BONY FINDINGS. Impression dictated by: Neisha Levine M.D. 10/16/2024 12:15 PM Dictation Location: [email or web address] Electronically authenticated by: [id number] Y Date: 10/16/2024 12:15
--- OUTSIDE RECORDS SUMMARY | 2024-10-16 16:01 | XMS_ITS | CCD ---
Author Organization [facility] Care Team Providers Care Lamination Assembler Name Role Phone ROHIT, DR GONZALES Admitting Unavailable HOY, DR GONZALES [...] Unavailable ZIEBER, DR SOLIS Adams Consulting Unavailable Christian Bee Primary Care Physician MD Jana Sherman Attending Provider Jana Sherman Attending Unavailable Jana Sherman Admitting Unavailable NILJana Lezama Attending Unavailable Christian Bee Referring Unavailable NILL, Jana Adams Attending Unavailable Jana SHERMAN Attending Unavailable CHRISTIAN BEE M Referring Unavailable ROHIT CHRISTIAN M Primary Care Unavailable CHRISTIAN BEE M Referring Unavailable ROHIT CHRISTIAN M Primary Care Unavailable ROHIT CHRISTIAN M Primary Care Unavailable CAMILO HARRY Attending Unavailable Christian Bee MD Primary Care Provider JANA PETERSON Attending Unavailable CHRISTIAN BEE M Referring Unavailable CHRISTIAN BEE M Primary Care Unavailable Allergies Allergy Classification Reported Allergen(s) Allergy Type Date of Onset Reaction(s) Facility (1 source) Lactose Drug Allergy 03-12-2018 [facility] Repository Medications Current Medications Medication Drug Class(es) Dates Sig (Normalized) Sig (Original) acetaminophen 325 mg / HYDROcodone bitartrate 10 mg oral tablet (5 sources) Opioid Agonist Start: 08-29-2024 take 1 tablet by mouth every six hours as needed for pain HYDROcodone-aceta minophen (NORCO) 10-325 mg per tablet Take 1 tablet by mouth every 6 (six) hours as needed for pain. 08/29/2024 Active Start: 02-02-2015 End: 03-22-2018 take 1 tablet by mouth every six hours Hydrocodone-Acetaminophen Active 1 TAB P O Q6H 28 March 22, 2018 11:58am Start: 02-02-2015 take 1 tablet by myah th every six hours as needed for pain [place] 325 mg-10 mg oral tablet 1 tab(s), Oral, q6hr as needed for pain, Refill(s) 0, Pain Start Date: 02/02/15 Status: Ordered Eye Promise (1 source) Start: 03-12-2018 take 2 capsules by mouth once daily [facility] Promise Active 2 CAP PO Daily March 12, 2018 1:00am fenofibrate 160 mg oral tablet (4 sources) Peroxisome Proliferator Receptor alpha Agonist Start: 07-17-2024 take 1 tablet by mouth in the morning fenofibrate (LOFIBRA) 160 mg tablet Take 1 tablet (160 mg total) by mouth in the morning. 07/17/2024 Active Start: 01-24-2017 take 1 tablet by myah th once daily fenofibrate 160 mg oral tablet 160 mg = 1 tab(s), Oral, Daily, Refills(s) 0 Start Date: 07/25/23 Status: Ordered SUMAtriptan 100 mg oral tablet (2 sources) Serotonin-1b and Serotonin-1d Receptor Agonist Start: 07-25-2023 take 1 tablet by mouth once Imitrex 100 mg Tab 100 mg = 1 tab(s), Oral, Once, Refills(s) 0 Start Date: 07/25/23 Status: Ordered Problems Active Problems Problem Classification Problem Date Documented Da te Episodic/Chronic Abdominal hernia (4 sources) Umbilical hernia without obstruction or gangrene; Translations: [Reducible umbilical hernia] Onset: 09-30-2024 10-02-2024 Episodic Abdominal pain (2 sources) Flank pain Onset: 09-30-2024 Episodic Chronic obstructive pulmonary disease and bronchiectasis (4 sources) Bronchitis, not specified as acute or chronic; Translations: [BRONCHITIS NOT SPEC ACUTE/CHRON] Onset: 06-21-2021 Episodic Diabetes mellitus without complication (1 source) Other abnormal glucose; Translations: [OTHER ABNORMAL GLUCOSE] Onset: 06-11-2021 Episodic Disorders of lipid metabolism (8 sources) Pure hyperglyceridemia; Translations: [Hyperlipidemia, unspecified] Onset: 06-10-2021 Chronic Diverticulosis and diverticulitis (4 sources) Diverticular disease; Translations: [Diverticula of intestine] Onset: 11-22-2023 07-25-2023 Chronic Headache; including migraine (3 sources) Migraine; Translations: [Migraine, unspecified, not intractable, without status migrainosus] Onset: 08-02-2024 07-25-2023 Chronic Nutritional deficiencies (1 source) Vitamin D deficiency, unspecified; Translations: [VITAMIN D DEFICIENCY UNSPECIFIED] Onset: 06-11-2021 Chronic Other and unspecified benign neoplasm (3 sources) History of polyp of colon; Translations: [Personal history of colonic polyps] Onset: 08-23-2023 Episodic Other and unspecified benign neoplasm (2 sources) Benign neoplasm of descending colon; Translations: [Benign neoplasm of descending colon] Onset: 11-22-2023 Episodic Other and unspecified benign neoplasm (2 sources) Benign neoplasm of sigmoid colon; Translations: [Benign neoplasm of sigmoid colon] Onset: 11-22-2023 Episodic Other diseases of bladder and urethra (2 sources) Neurogenic bladder 07-25-2023 Chronic Other gastrointestinal disorders (1 source) Abnormal feces; Translations: [Other fecal abnormalities] Onset: 08-23-2023 Episodic Other gastrointestinal disorders (3 sources) Occult blood in stools; Translations: [Other fecal abnormalities] 07-25-2023 Episodic Other nervous system disorders (2 sources) Chronic pain due to injury 07-25-2023 Chronic Other nutritional; endocrine; and metabolic disorders (2 sources) Body mass index 30+ - obesity 08-23-2023 Chronic Other nutritional; endocrine; and metabolic disorders (2 sources) Obesity caused by energy imbalance 07-25-2023 Chronic Other screening for suspected conditions (not mental disorders or infectious disease) (2 sources) Encounter for screening for malignant neoplasm of prostate; Translations: [Encounter for screening for malignant neoplasm of rectum] Onset: 06-11-2021 Episodic Spondylosis; intervertebral disc disorders; other back problems (2 sources) Lumbar post-laminectomy syndrome 07-25-2023 Chronic Thyroid disorders (1 source) Hypothyroidism, unspecified; Translations: [Hypothyroidism, unspecified] Onset: 09-05-2024 Chronic Unclassified (1 source) LOW BACK PAIN, UNSPECIFIED; Translations: [LOW BACK PAIN, UNSPECIFIED] Onset: 06-11-2021 Unclassified (1 source) Low back pain, unspecified; Translations: [Low back pain, unspecified] Onset: 08-02-2024 Past or Other Problems Problem Classification Problem Date Documented Da te Episodic/Chronic Other connective tissue disease (4 sources) Impingement syndrome of right shoulder; Translations: [IMPINGEMENT SYNDROME RIGHT SHOULDER] Onset: 10-27-2020 Episodic Other connective tissue disease (4 sources) Impingement syndrome of unspecified shoulder; Translations: [IMPINGEMENT SYNDROME UNS SHOULDER] Onset: 10-07-2020 Episodic Results Test Name Value Interpretation Reference Range Facility [facility] 10-02-[address] [facility] CBC WITH AUTO DIFFERENTIALon 09-30-2024 BASOPHILS ABSOLUTE COUNT (10*3/UL) BY AUTOMATED COUNT 0.0 10*3/uL Normal 0.0-0.2 [facility] Comment on above: Performed By: #### U AVINASH #### [facility] ([facility]) [address] [place] [address] VIR BASOPHILS RELATIVE PERCENT BY AUTOMATED COUNT 0.5 % Normal [facility] Comment on above: Performed By: #### U AVINASH #### [facility] ([facility]) [address] [place] [address] VIR CELLAVISION DIFFERENTIAL TYPE AUTOMATED DIFFERENTIAL Normal [facility] Comment on above: Performed By: #### U AVINASH #### [facility] ([facility]) [address] [place] [address] VIR Eosinophils (Bld) [#/Vol] 0.1 10*3/uL Normal 0.0-0.4 [facility] Comment on above: Performed By: #### U AVINASH #### [facility] ([facility]) [address] [place] [address] VIR EOSINOPHILS RELATIVE PERCENT BY AUTOMATED COUNT 1.3 % Normal [facility] Comment on above: Performed By: #### U AVINASH #### [facility] ([facility]) [address] [place] [address] VIR Erythrocyte distribution width (RBC) [Ratio] 13.8 % Normal 11.5-15 [facility] Comment on above: Performed By: #### U AVINASH #### [facility] ([facility]) [address] [place] [address] VIR Hematocrit (Bld) [Volume fraction] 44.5 % Normal 39-50 [facility] Comment on above: Performed By: #### U AVINASH #### [facility] ([facility]) [address] [place] [address] VIR Hemoglobin (Bld) [Mass/Vol] 15.0 g/dL Normal 13-17 [facility] Comment on above: Performed By: #### U AVINASH #### [facility] ([facility]) [address] [place] [address] VIR LYMPHOCYTES ABSOLUTE COUNT (10*3/UL) BY AUTOMATED COUNT 1.7 10*3/uL Normal 1.0-3.5 [facility] Comment on above: Performed By: #### U AVINASH #### [facility] ([facility]) [address] [place] [address] VIR LYMPHOCYTES RELATIVE PERCENT BY AUTOMATED COUNT 25.2 % Normal [facility] Comment on above: Performed By: #### U AVINASH #### [facility] ([facility]) [address] [place] [address] VIR MCH (RBC) [Entitic mass] 30.6 pg Normal 27-34 [facility] Comment on above: Performed By: #### U AVINASH #### [facility] ([facility]) [address] [place] [address] VIR MCHC (RBC) [Mass/Vol] 33.7 g/dL Normal 32-36 [facility] Comment on above: Performed By: #### U AVINASH #### [facility] ([facility]) [address] [place] [address] VIR MCV (RBC) [Entitic vol] 91 fL Normal 80-100 [facility] Comment on above: Performed By: #### U AVINASH #### [facility] ([facility]) [address] [place] [address] VIR MONOCYTES ABSOLUTE COUNT (10*3/UL) BY AUTOMATED COUNT 0.6 10*3/uL Normal 0.0-0.9 [facility] Comment on above: Performed By: #### U AVINASH #### [facility] ([facility]) [address] [place] [address] VIR MONOCYTES RELATIVE PERCENT BY AUTOMATED COUNT 9.4 % Normal [facility] Comment on above: Performed By: #### U AVINASH #### [facility] ([facility]) [address] [place] [address] VIR NEUTROPHILS ABSOLUTE COUNT BY AUTOMATED COUNT 4.3 10*3/uL Normal 1.5-6.6 [facility] Comment on above: Performed By: #### U AVINASH #### [facility] ([facility]) [address] [place] [address] VIR NEUTROPHILS RELATIVE PERCENT BY AUTOMATED COUNT 63.6 % Normal [facility] Comment on above: Performed By: #### U AVINASH #### [facility] ([facility]) [address] [place] [address] VIR Platelet mean volume (Bld) [Entitic vol] 8.2 fL Normal 7-12 [facility] Comment on above: Performed By: #### U AVINASH #### [facility] ([facility]) [address] [place] [address] VIR Platelets (Bld) [#/Vol] 254 10*3/uL Normal 150-450 [facility] Comment on above: Performed By: #### U AVINASH #### [facility] ([facility]) [address] [place] [address] VIR RBC COUNT 4.91 X10E12/L Normal 4.1-5.7 [facility] Comment on above: Performed By: #### U AVINASH #### [facility] ([facility]) [address] [place] [address] VIR WBC (Bld) [#/Vol] 6.7 10*3/uL Normal 4-11 [facility] Comment on above: Performed By: #### U AVINASH #### [facility] ([facility]) [address] [place] [address] VIR COMPREHENSIVE METABOLIC PANE Jono 09-30-2024 Albumin [Mass/Vol] 4.6 g/dL Normal 3.2-5.3 [facility] Comment on above: Performed By: #### U AVINASH #### [facility] ([facility]) [address] [place] [address] VIR ALP [Catalytic activity/Vol] 47 U/L Normal 39-130 [facility] Comment on above: Performed By: #### U AVINASH #### [facility] ([facility]) [address] [place] [address] VIR ALT [Catalytic activity/Vol] 26 U/L Normal <=40 [facility] Comment on above: Performed By: #### U AVINASH #### [facility] ([facility]) [address] [place] [address] VIR Anion gap [Moles/Vol] 8 mmol/L Normal 5-15 [facility] Comment on above: Performed By: #### U AVINASH #### [facility] ([facility]) [address] [place] [address] VIR AST [Catalytic activity/Vol] 25 U/L Normal <=41 [facility] Comment on above: Performed By: #### U AVINASH #### [facility] ([facility]) [address] [place] [address] VIR Bilirubin [Mass/Vol] 0.6 mg/dL Normal 0.3-1.2 [facility] Comment on above: Performed By: #### U AVINASH #### [facility] ([facility]) [address] [place] [address] VIR Calcium [Mass/Vol] 9.5 mg/dL Normal 8.5-10.5 [facility] Comment on above: Performed By: #### U AVINASH #### [facility] ([facility]) [address] [place] [address] VIR Chloride [Moles/Vol] 108 mmol/L Normal 98-109 [facility] Comment on above: Performed By: #### U AVINASH #### [facility] ([facility]) [address] [place] [address] VIR CO2 [Moles/Vol] 25 mmol/L Normal 22-32 [facility] Comment on above: Performed By: #### U AVINASH #### [facility] ([facility]) [address] [place] [address] VIR Creatinine [Mass/Vol] 0.81 mg/dL Normal 0.70-1.20 [facility] Comment on above: Result Comment: METH OD TRACEABLE TO IDMS STANDARD Performed By: #### U AVINASH #### [facility] ([facility]) [address] [place] [address] VIR EGFR (CKD-EPI) NON-RACE DEPENDENT >^90 Normal >=60 [facility] Comment on above: Result Comment: eGFR not reported due to non-numeric value for Creatinine. Reported eGFR is based on the CKD-EPI 2020 equation that does not use a race coefficient. Performed By: #### U AVINASH #### [facility] ([facility]) [address] [place] [address] VIR Glucose [Mass/Vol] 104 mg/dL High 65-99 [facility] Comment on above: Performed By: #### U AVINASH #### [facility] ([facility]) [address] [place] [address] VIR Potassium [Moles/Vol] 3.7 mmol/L Normal 3.5-5.0 [facility] Comment on above: Performed By: #### U AVINASH #### [facility] ([facility]) [address] [place] [address] VIR Protein [Mass/Vol] 7.3 g/dL Normal 6.0-8.0 [facility] Comment on above: Performed By: #### U AVINASH #### [facility] ([facility]) [address] [place] [address] VIR Sodium [Moles/Vol] 141 mmol/L Normal 134-146 [facility] Comment on above: Performed By: #### U AVINASH #### [facility] ([facility]) [address] [place] [address] VIR Urea nitrogen [Mass/Vol] 24 mg/dL Normal 5-27 [facility] Comment on above: Performed By: #### U AVINASH #### [facility] ([facility]) [address] [place] [address] ABDOMEN AND PELVIS W CONT on 09-30-2024 CT ABDOMEN AND PELVIS W CONT CT ABDOMEN AND PELVIS W CONT History: Right lateral mid abdominal pain. Exam/Technique: CT Abdomen & Pelvis. Contiguous axial images are obtained of the abdomen and pelvis. Omnipaque 300 IV contrast utilized. Coronal and sagittal images are reconstructed and reviewed as well. Automatic exposure control was utilized. Comparison: None available Findings: Lung bases: No acute findings. Bony structures: Age compatible Abdomen: Diffuse hepatic steatosis. Subcentimeter low-density focus left lobe the liver probable cyst. Patent hepatic vasculature. The gallbladder, pancreas, spleen and adrenal glands are within normal limits. Kidneys perfuse symmetrically. No hydronephrosis, renal lithiasis or inflammatory focus. Nonobstructive bowel gas pattern. No free air. Stomach and small bowel are decompressed. Moderate stool retention. Separate appendix not seen however no evidence of right lower quadrant inflammation. There is sigmoid diverticulosis without evidence of inflammatory focus. Pelvis: No free fluid. Urinary bladder is grossly normal. Mild atherosclerotic disease of normal size abdominal aorta. No retroperitoneal hematoma or adenopathy. IMPRESSION: * No acute or localizing pathology to correspond with the patient's symptoms. * Hepatic steatosis and uncomplicated diverticulosis. All CT scans at this facility use dose modulation, iterative reconstruction, and/or weight based dosing when appropriate to reduce radiation dose to as low as reasonably achievable. Finalized by Neil Pitts DO on 09/30/2024 10:12 AM Normal [facility] LACTATE W/ REFLEXon 10-01-19 25 LACTATE W/REFLEX 1.3 mmol/L Normal 0.4-2.0 [facility] Comment on above: Order Comment: Resul t did not trigger repeat Lactate,re-order if needed. Performed By: #### U AVINASH #### [facility] ([facility]) [address] [place] [address] VIR LIPASEon 09-30-2024 Lipase [Catalytic activity/Vol] 41 U/L High 17-40 [facility] Comment on above: Performed By: #### U AVINASH #### [facility] ([facility]) [address] [address] VIR T3, FREEon 09-05-2024 Free T3 [Mass/Vol] 3.87 pg/mL Normal 2.50-3.90 [facility] Comment on above: Performed By: #### F T3 #### [facility] ([facility]) [address] [place] [address] VIR THYROID PROFILE INCLUDES TSH FT4on 09-05-2024 Free T4 [Mass/Vol] 0.79 ng/dL Normal 0.61-1.60 [facility] Comment on above: Performed By: #### U AVINASH #### [facility] ([facility]) [address] [address] VIR TSH 1.22 uIU/mL Normal 0.49-4.67 [facility] Comment on above: Performed By: #### U AVINASH #### [facility] ([facility]) [address] [place] [address] VIR CBC WITH AUTO DIFFERENTIALon 08-02-2024 BASOPHILS ABSOLUTE COUNT (10*3/UL) BY AUTOMATED COUNT 0.0 10*3/uL Normal 0.0-0.2 [facility] Comment on above: Result Comment: This is an appended report. These results have been appended to a previously preliminary verified report. Performed By: #### C BCA #### [facility] ([facility]) [address] [place] [address] VIR BASOPHILS RELATIVE PERCENT BY AUTOMATED COUNT 0.5 % Normal [facility] Comment on above: Result Comment: This is an appended report. These results have been appended to a previously preliminary verified report. Performed By: #### C BCA #### [facility] ([facility]) [address] [place] [address] VIR CELLAVISION DIFFERENTIAL TYPE AUTOMATED DIFFERENTIAL Normal [facility] Comment on above: Result Comment: This is an appended report. These results have been appended to a previously preliminary verified report. Performed By: #### C BCA #### [facility] ([facility]) [address] [place] [address] VIR Eosinophils (Bld) [#/Vol] 0.1 10*3/uL Normal 0.0-0.4 [facility] Comment on above: Result Comment: This is an appended report. These results have been appended to a previously preliminary verified report. Performed By: #### C BCA #### [facility] ([facility]) [address] [place] [address] VIR EOSINOPHILS RELATIVE PERCENT BY AUTOMATED COUNT 1.5 % Normal [facility] Comment on above: Result Comment: This is an appended report. These results have been appended to a previously preliminary verified report. Performed By: #### C BCA #### [facility] ([facility]) [address] [place] [address] VIR Erythrocyte distribution width (RBC) [Ratio] 14.0 % Normal 11.5-15 [facility] Comment on above: Performed By: #### C BCA #### [facility] ([facility]) [address] [place] [address] VIR Hematocrit (Bld) [Volume fraction] 43.8 % Normal 39-50 [facility] Comment on above: Performed By: #### C BCA #### [facility] ([facility]) [address] [place] [address] VIR Hemoglobin (Bld) [Mass/Vol] 14.8 g/dL Normal 13-17 [facility] Comment on above: Performed By: #### C BCA #### [facility] ([facility]) [address] [place] [address] VIR LYMPHOCYTES ABSOLUTE COUNT (10*3/UL) BY AUTOMATED COUNT 1.7 10*3/uL Normal 1.0-3.5 [facility] Comment on above: Result Comment: This is an appended report. These results have been appended to a previously preliminary verified report. Performed By: #### C BCA #### [facility] ([facility]) [address] [place] [address] VIR LYMPHOCYTES RELATIVE PERCENT BY AUTOMATED COUNT 28.0 % Normal [facility] Comment on above: Result Comment: This is an appended report. These results have been appended to a previously preliminary verified report. Performed By: #### C BCA #### [facility] ([facility]) [address] [place] [address] VIR MCH (RBC) [Entitic mass] 30.9 pg Normal 27-34 [facility] Comment on above: Performed By: #### C BCA #### [facility] ([facility]) [address] [place] [address] VIR MCHC (RBC) [Mass/Vol] 33.9 g/dL Normal 32-36 [facility] Comment on above: Performed By: #### C BCA #### [facility] ([facility]) [address] [place] [address] VIR MCV (RBC) [Entitic vol] 91 fL Normal 80-100 [facility] [facility] Comment on above: Performed By: #### C BCA #### [facility] ([facility]) [address] [place] [address] VIR MONOCYTES ABSOLUTE COUNT (10*3/UL) BY AUTOMATED COUNT 0.6 10*3/uL Normal 0.0-0.9 [facility] Comment on above: Result Comment: This is an appended report. These results have been appended to a previously preliminary verified report. Performed By: #### C BCA #### [facility] ([facility]) [address] [place] [address] VIR MONOCYTES RELATIVE PERCENT BY AUTOMATED COUNT 9.3 % Normal [facility] Comment on above: Result Comment: This is an appended report. These results have been appended to a previously preliminary verified report. Performed By: #### C BCA #### [facility] ([facility]) [address] [place] [address] VIR NEUTROPHILS ABSOLUTE COUNT BY AUTOMATED COUNT 3.7 10*3/uL Normal 1.5-6.6 [facility] Comment on above: Result Comment: This is an appended report. These results have been appended to a previously preliminary verified report. Performed By: #### C BCA #### [facility] ([facility]) [address] [place] [address] VIR NEUTROPHILS RELATIVE PERCENT BY AUTOMATED COUNT 60.7 % Normal [facility] Comment on above: Result Comment: This is an appended report. These results have been appended to a previously preliminary verified report. Performed By: #### C BCA #### [facility] ([facility]) [address] [place] [address] VIR Platelet mean volume (Bld) [Entitic vol] 8.7 fL Normal 7-12 [facility] Comment on above: Performed By: #### C BCA #### [facility] ([facility]) [address] [place] [address] VIR Platelets (Bld) [#/Vol] 242 10*3/uL Normal 150-450 [facility] Comment on above: Performed By: #### C BCA #### [facility] ([facility]) [address] [place] [address] VIR RBC COUNT 4.81 X10E12/L Normal 4.1-5.7 [facility] Comment on above: Performed By: #### C BCA #### [facility] ([facility]) [address] [place] [address] VIR WBC (Bld) [#/Vol] 6.2 10*3/uL Normal 4-11 [facility] Comment on above: Performed By: #### C BCA #### [facility] ([facility]) [address] [place] [address] VIR COMPREHENSIVE METABOLIC PANE Jono 08-02-2024 Albumin [Mass/Vol] 4.7 g/dL Normal 3.2-5.3 [facility] Comment on above: Performed By: #### C MP #### [facility] ([facility]) [address] [place] [address] VIR ALP [Catalytic activity/Vol] 47 U/L Normal 39-130 [facility] Comment on above: Performed By: #### C MP #### [facility] ([facility]) [address] [place] [address] VIR ALT [Catalytic activity/Vol] 26 U/L Normal <=40 [facility] Comment on above: Performed By: #### C MP #### [facility] ([facility]) [address] [place] [address] VIR Anion gap [Moles/Vol] 10 mmol/L Normal 5-15 [facility] Comment on above: Performed By: #### C MP #### [facility] ([facility]) [address] [place] [address] VIR AST [Catalytic activity/Vol] 27 U/L Normal <=41 [facility] Comment on above: Performed By: #### C MP #### [facility] ([facility]) [address] [place] [address] VIR Bilirubin [Mass/Vol] 0.9 mg/dL Normal 0.3-1.2 [facility] Comment on above: Performed By: #### C MP #### [facility] ([facility]) [address] [place] [address] VIR Calcium [Mass/Vol] 9.7 mg/dL Normal 8.5-10.5 [facility] Comment on above: Performed By: #### C MP #### [facility] ([facility]) [address] [place] [address] VIR Chloride [Moles/Vol] 105 mmol/L Normal 98-109 [facility] Comment on above: Performed By: #### C MP #### [facility] ([facility]) [address] [place] [address] VIR CO2 [Moles/Vol] 26 mmol/L Normal 22-32 [facility] Comment on above: Performed By: #### C MP #### [facility] ([facility]) [address] [place] [address] VIR Creatinine [Mass/Vol] 0.89 mg/dL Normal 0.60-1.30 [facility] Comment on above: Result Comment: METH OD TRACEABLE TO IDMS STANDARD Performed By: #### C MP #### [facility] ([facility]) [address] [place] [address] VIR EGFR (CKD-EPI) NON-RACE DEPENDENT >^90 Normal >=60 [facility] Comment on above: Result Comment: Repo rted eGFR is based on the CKD-EPI 2020 equation that does not use a race coefficient. Performed By: #### C MP #### [facility] ([facility]) [address] [place] [address] VIR Glucose [Mass/Vol] 99 mg/dL Normal 65-99 [facility] Comment on above: Performed By: #### C MP #### [facility] ([facility]) [address] [place] [address] VIR Potassium [Moles/Vol] 3.8 mmol/L Normal 3.5-5.0 [facility] Comment on above: Performed By: #### C MP #### [facility] ([facility]) [address] [place] [address] VIR Protein [Mass/Vol] 7.0 g/dL Normal 6.0-8.0 [facility] Comment on above: Performed By: #### C MP #### [facility] ([facility]) [address] [place] [address] VIR Sodium [Moles/Vol] 141 mmol/L Normal 134-146 [facility] Comment on above: Performed By: #### C MP #### [facility] ([facility]) [address] [place] [address] VIR Urea nitrogen [Mass/Vol] 19 mg/dL Normal 5-27 [facility] Comment on above: Performed By: #### C MP #### [facility] ([facility]) [address] [place] [address] VIR HEMOGLOBIN A1Con 08-02-2024 Glucose [Mass/Vol] 117 mg/dL Normal [facility] Comment on above: Performed By: #### H A1C #### [facility] ([facility]) [address] [place] [address] VIR HbA1c (Bld) [Mass fraction] 5.7 % High 4.4-5.6 [facility] Comment on above: Result Comment: ADA Guidelines Result HgbA1c Normal : less than 5.7 % Prediabetes : 5.7 % to 6.4 % Diabetes : > 6.4 % Use with caution in patients with abnormal hemoglobin variants as the half-life of red blood cells and in vivo glycation rates are affected. Performed By: #### H A1C #### [facility] ([facility]) [address] [place] [address] VIR INSULINon 08-02-2024 INSULIN 14.67 uIU/mL Normal 1.00-23.00 [facility] Comment on above: Order Comment: Ref. range is for FASTING NON-DIABETIC POPULATION. Performed By: #### I NSL #### [facility] ([facility]) [address] [facility] [address] [place] [address] VIR LIPID PROFILEon 08-02-2024 Cholesterol [Mass/Vol] 156 mg/dL Normal 150-200 [facility] Comment on above: Performed By: #### L IPR #### [facility] ([facility]) [address] [place] [address] VIR Cholesterol in HDL [Mass/Vol] 30 mg/dL Low >39 [facility] Comment on above: Result Comment: HDL <40 mg/dL - High Risk HDL > or = 40mg/dL- Desirable HDL >60 mg/dL - Negative Risk Performed By: #### L IPR #### [facility] ([facility]) [address] [place] [address] VIR Cholesterol in LDL [Mass/Vol] 83 mg/dL Normal <130 [facility] Comment on above: Result Comment: LDL <100 mg/dL - Desirable LDL >160 mg/dL - High Risk Performed By: #### L IPR #### [facility] ([facility]) [address] [place] [address] VIR CHOLESTEROL:HDL 5.2 High 1.0-5.0 [facility] Comment on above: Performed By: #### L IPR #### [facility] ([facility]) [address] [place] [address] VIR Triglyceride [Mass/Vol] 215 mg/dL High 27-150 [facility] Comment on above: Performed By: #### L IPR #### [facility] ([facility]) [address] [place] [address] VIR VERY LOW LIPOPROTEIN 43 mg/dL High 0-30 [facility] Comment on above: Performed By: #### L IPR #### [facility] ([facility]) [address] [place] [address] VIR PROSTATIC SPECIFIC ANTIGEN S CREENon 08-02-2024 PROSTATIC SPEC ANT 0.89 ng/mL Normal 0.00-4.00 [facility] Comment on above: Result Comment: The method used for this test is [employer] DXI chemiluminescent immunoassay. Values obtained by different assay methods cannot be used interchangeably. Performed By: #### P SAS #### [facility] ([facility]) [address] [place] [address] VIR T3, FREEon 08-02-2024 Free T3 [Mass/Vol] 4.00 pg/mL High 2.50-3.90 [facility] Comment on above: Performed By: #### F T3 #### [facility] ([facility]) [address] [place] [address] VIR THYROID PROFILE INCLUDES TSH FT4on 08-02-2024 Free T4 [Mass/Vol] 0.81 ng/dL Normal 0.61-1.60 [facility] Comment on above: Performed By: #### T HYR #### [facility] ([facility]) [address] [place] [address] VIR TSH 1.89 uIU/mL Normal 0.49-4.67 [facility] Comment on above: Performed By: #### T HYR #### [facility] ([facility]) [address] [place] [address] VIR URIC ACIDon 08-02-2024 Urate [Mass/Vol] 5.9 mg/dL Normal 2.6-7.2 [facility] Comment on above: Performed By: #### U AVINASH #### [facility] ([facility]) 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 Medications What How Much When Instructions Unchanged acetaminophen-hydrocod one (Hamden 325 mg-10 mg oral tablet) 1 Tablets By Mouth Every 6 hours as needed for as needed for pain Unchanged fenofibrate (fenofibrate 160 mg oral tablet) 1 Tablets By Mouth Every day Unchanged sumatriptan (Imitrex 100 mg Tab) 1 Tablets By Mouth Once Allergies No Known Allergies Problems Ongoing - Any problem that you are currently receiving treatment for. 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 Please share your experience with us by completing your survey. We appreciate your feedback and thank you for choosing us for your care. Peg Jon [facility] General Surgery Office/Clini c Noteon 11-22-2023 General Surgery Office/Clinic Note General Surgery Office/Clinic Note Chief Complaint post operative follow up HPI Staff 21 day post operative follow up post colonoscopy with ascending, descending and sigmoid polypectomies. History of Present Illness s/p colonoscopy due to personal h/o colon polyps/positive fecal occult blood test; patient has small hyperplastic polyp removed from ascending colon, 2 tubular adenomas removed from descending colon and one tubular adenoma removed from sigmoid colon; doing well, denies pain or blood in stools. Review of Systems ROS - Provider Constitutional: no fever, no [...] been reviewed and are negative or noncontributory. Assessment/Plan 1. Benign neoplasm of descending colon (D12.4: Benign neoplasm of descending colon) recommend surveillance colonoscopy in 5 years, call sooner if problems/questions. 2. Benign neoplasm of sigmoid colon (D12.5: Benign neoplasm of sigmoid colon) see # 1 3. Sigmoid diverticulosis (K57.30: Diverticulosis of large intestine without perforation or abscess without bleeding) high fiber diet and daily fiber supplement. 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 Medications fenofibrate 160 mg oral tablet, 160 mg= 1 tab(s), Oral, Daily Imitrex 100 mg Tab, 100 mg= 1 tab(s), Oral, Once Hamden 325 mg-10 mg oral tablet, 1 tab(s), [...] SARS-CoV-2 (COVID-19) mRNA BNT-162b2 vax 05/05/2020 Recorded Normal [facility] Comment on above: Result Comment: Elec tronically Signed By: BAYLEE MILLARD, Jana Rubio\Date and Time Signed: 11/22/23 13:45 EDT Reminderson 11-22-2023 Reminders Reminders From: Ruby Vizcarra LPN To: N - Clinical; Sent: 11/22/2023 13:51:44 EDT Show up: 09/30/2028 07:00:00 EDT Subject: colonoscopy recall Due Date/Time: 10/31/2028 07:00:00 EDT Reminder/Recall Patient due for surveillance colonoscopy 10/31/2028 due to history of tubular adenoma. Normal [facility] Ambulatory Visit Summaryon 0 08-23-2023 Ambulatory Visit Summary Ambulatory Visit Summary JIM GUERRIER :1955 Visit Date:08/23/2023 Ambulatory Visit Instructions Your Diagnosis Personal history of colonic polyps Positive occult stool blood test Your Care Team Attending Physician - BAYLEE MILLARD, Jana Adams Primary Care Physician - Rohit MILLARD, Christian Referring Physician - Christian Bee MD This Is Your Medications List Contact prescribing physician if questions or concerns acetaminophen-hydrocod one ([place]den 325 mg-10 mg oral tablet) fenofibrate (fenofibrate [...] How Much When Instructions Unchanged acetaminophen-hydrocod one ([place]den 325 mg-10 mg oral tablet) 1 Tablets [...] you for choosing us for your care. [facility] Ambulatory Visit Summary Ambulatory Visit Summary JIM GUERRIER Eleni :1955 Visit Date:08/23/2023 Ambulatory Visit Instructions Your Diagnosis Personal history of colonic polyps Positive occult stool blood test Your Care Team Attending Physician - BAYLEE MILLARD, Jana Adams Primary Care Physician - Rohit MILLARD, Christian Referring Physician - Christian Bee MD This Is Your Medications List Contact prescribing physician if questions or concerns acetaminophen-hydrocod one ([place]den 325 mg-10 mg oral tablet) fenofibrate (fenofibrate [...] How Much When Instructions Unchanged acetaminophen-hydrocod one ([place]den 325 mg-10 mg oral tablet) 1 Tablets [...] you for choosing us for your care. Normal [facility] Physician Referralon 024 Physician Referral [phone] [id number] Normal [facility] LEGIONELLA PNUEMOPHILA ABon 06-24-2021 Legionell P. Abs <0.91 Normal 0.00-0.[address] [facility] Comment on above: Result Comment: Nega tive <0.91 Equivocal 0.91 - 1.09 Positive >1.09 This assay detects IgG/IgM/IgA antibodies to L. pneumophila Groups 1-6 by the EIA method. Performed By: #### L [facility] #### [facility] [address] [place] [address] Dr. Jose Greene H PYLORI ANTIBODY IGGon 06-13 H. PYLORI IGG ABS 0.28 Index Value Normal 0.00-0.79 [facility] Comment on above: Result Comment: Nega tive <0.80 Equivocal 0.80 - 0.89 Positive >0.89 Performed By: #### H PYLLC ####[facility] [address] [place], [place] [address]Dr. Jose Greene TOXOPLASMA GONDII IGG ABon 0 06-22-2021 Toxoplasma gondii Ab,IgG,Qn <3.0 Normal 0.0-7.[address] [facility] Comment on above: Result Comment: Nega tive <7.2 Equivocal 7.2 - 8.7 Positive >8.7 Performed By: #### T OXPIGG ####[facility] [address] [place], [place] [address]Dr. Jose Greene XR CHEST 2 Von 06-21-2021 [...] VERONA MATAMOROS Date: 2021-06-21 12:58 Normal [facility] INSULINon 06-11-2021 Insulin 17.8 uIU/mL Normal 2.6-24.[address] [facility] Comment on above: Performed By: #### I NSULIN ####[facility] [address] [place], [place] [address]DrCharley Greene CBC AUTO DIFFon 06-10-2021 BASO # 0.1 103/ul Normal 0.0-0.1 [facility] Comment on above: Performed By: #### C BC ####[facility] [address] [place], [place] [address]DrCharley Greene Basophils/100 WBC (Bld) 0.9 % Normal 0.2-2.0 [facility] Comment on above: Performed By: #### C BC ####[facility] [address] [place], [place] [address]DrCharley Greene EO # 0.1 103/ul Normal 0.0-0.7 [facility] Comment on above: Performed By: #### C BC ####[facility] [address] [place] [id number]. Jose Greene Eosinophils/100 WBC (Bld) 1.4 % Normal 0.9-7.[address] [facility] Comment on above: Performed By: #### C BC ####[facility] [address] [place] [id number]. Jose Greene Erythrocyte distribution width (RBC) [Ratio] 12.8 % Normal 11.0-15.[address] [facility] Comment on above: Performed By: #### C BC ####[facility] [address] [place], [place] [address]Dr. Jose Greene Hematocrit (Bld) [Volume fraction] 47.3 % Normal 42.0-54.[address] [facility] Comment on above: Performed By: #### C BC ####[facility] [address] [place], [place] [address]Dr. Jose Greene Hemoglobin (Bld) [Mass/Vol] 15.7 g/dL Normal 14.0-18.[address] [facility] Comment on above: Performed By: #### C BC ####[facility] [address] [place], [place] [address]Dr. Jose Greene IG # 0.05 10e3/ul Critically high 0.00-0.03 [facility] Comment on above: Performed By: #### C BC ####[facility] [address] [place] [address]Dr. Jose Greene IG % 0.8 % Critically high 0.0-0.5 [facility] Comment on above: Performed By: #### C BC ####[facility] [address] [place], [place] [address]Dr. Jose Greene LYMPH # 2.2 103/ul Normal 1.2-3.8 [facility] Comment on above: Performed By: #### C BC ####[facility] [address] [place], [place] [address]Dr. Jose Greene Lymphocytes/100 WBC (Bld) 35.1 % Normal 20.5-60.0 [facility] Comment on above: Performed By: #### C BC ####[facility] [address] [place] [address]Dr. Jose Greene MANUAL DIFF REQ NO Normal [facility] Comment on above: Performed By: #### C BC ####[facility] [address] [place] [id number]. Jose Greene MCH (RBC) [Entitic mass] 30.9 pg Normal 25.9-34.[address] [facility] Comment on above: Performed By: #### C BC ####[facility] [address] [place] [address]Dr. Jose Greene MCHC (RBC) [Mass/Vol] 33.2 g/dL Normal 29.9-35.2 [facility] Comment on above: Performed By: #### C BC ####[facility] [address] [place], [place] [address]Dr. Jose Greene MCV (RBC) [Entitic vol] 93.1 fL Normal 80.0-94.[address] [facility] Comment on above: Performed By: #### C BC ####[facility] [address] [place], [place] [address]Dr. Jose Greene MONO # 0.7 103/ul Normal 0.3-0.[address] [facility] Comment on above: Performed By: #### C BC ####[facility] [address] [place] [address]Dr. Jose Greene Monocytes/100 WBC (Bld) 11.0 % Normal 1.7-12.0 [facility] Comment on above: Performed By: #### C BC ####[facility] [address] [place], [place] [address]Dr. Jose Greene NEUT # 3.2 103/ul Normal 1.4-6.5 [facility] Comment on above: Performed By: #### C BC ####[facility] [address] [place], [place] [address]Dr. Jose Greene Neutrophils/100 WBC (Bld) 50.8 % Normal 43.0-75.0 [facility] Comment on above: Performed By: #### C BC ####[facility] [address] [place], [place] [address]ZmCharley Greene Platelet mean volume (Bld) [Entitic vol] 9.8 fL Normal 9.5-13.[address] [facility] Comment on above: Performed By: #### C BC ####[facility] [address] [place] [id number] Greene PLT 254 103/ul Normal 150-450 [facility] Comment on above: Performed By: #### C BC ####[facility] [address] [place], [place] [address]TwCharley Greene RBC 5.08 106/ul Normal 4.70-6.10 [facility] Comment on above: Performed By: #### C BC ####[facility] [address] [place] [id number] Greene WBC 6.4 103/ul Normal 4.0-11.[address] [facility] Comment on above: Performed By: #### C BC ####[facility] [address] [place], [place] [address]TiDr. Jose Greene FREE THYROXINE INDEX T7on FTI 3.23 Normal [facility] Comment on above: Performed By: #### T SH, T7, URIC, LIPID, CMP #### [facility] [id number] Jose Greene T3U 34.0 % Normal 23.5-40.5 [facility] Comment on above: Performed By: #### T SH, T7, URIC, LIPID, CMP #### [facility] [address] [place], [place] [address] Dr. Jose Greene T4 [Mass/Vol] 9.50 ug/dL Normal 4.50-12.10 [facility] Comment on above: Performed By: #### T SH, T7, URIC, LIPID, CMP #### [facility] [id number] Jose Greene GLYCOHEMOGLOBIN A1Con 2021 ADA RECOMMENDATION SEE BELOW Normal [facility] Comment on above: Result Comment: ADA RECOMMENDED LIMIT 4.0 - 6.0 ADA THERAPEUTIC TARGET < 7.0 ACTION SUGGESTED > 7.0 Performed By: #### A 1C ####[facility] [address] [address]Dr. Jose Greene Glucose [Mass/Vol] 117 mg/dL Normal [facility] Comment on above: Performed By: #### A 1C ####[facility] [address] [address]Dr. Jose Greene HbA1c (Bld) [Mass fraction] 5.7 % Normal 4.5-6.[address] [facility] Comment on above: Performed By: #### A 1C ####[facility] [address] [address]Dr. Jose Greene LIPID PROFILEon 06-10-2021 CHOL-HDL RATIO NORM SEE BELOW Normal [facility] Comment on above: Result Comment: 3.3 - 4.4 LOW RISK 4.4 - 7.1 AVERAGE RISK 7.1 - 11.0 MODERATE RISK >11.0 HIGH RISK Performed By: #### T SH, T7, URIC, LIPID, CMP #### [facility] [address] [place] [address] Dr. Jose Greene Cholesterol [Mass/Vol] 180 mg/dL Normal <=[address] [facility] Comment on above: Performed By: #### T SH, T7, URIC, LIPID, CMP #### [facility] [address] [address] [address] Jose Greene Cholesterol in HDL [Mass/Vol] 32 mg/dL Critically low 40-[address] [facility] Comment on above: Performed By: #### T SH, T7, URIC, LIPID, CMP #### [facility] [address] [address] [address] Jose Greene Cholesterol in LDL [Mass/Vol] 117.6 mg/dL Normal [facility] Comment on above: Performed By: #### T SH, T7, URIC, LIPID, CMP #### [facility] [address] [address] [address] Jose Greene Cholesterol.total/Ch olesterol in HDL [Mass ratio] 5.6 {ratio} Normal [facility] Comment on above: Performed By: #### T SH, T7, URIC, LIPID, CMP #### [facility] [address] [address] [address] Jose Greene HDL NORMAL > or = 60 mg/dl - LO W CARDIOVASCULAR RISK <40 mg/dl - HIGH CARDIOVASCULAR RISK Normal [facility] Comment on above: Performed By: #### T SH, T7, URIC, LIPID, CMP #### [facility] [address] [address] [address] Jose Greene LDL CALC NORMAL SEE BELOW Normal [facility] Comment on above: Result Comment: <100 mg/dl OPTIMAL 100 - 129 mg/dl NEAR OR ABOVE OPTIMAL 130 - 159 mg/dl BORDERLINE HIGH 160 - 189 mg/dl HIGH >190 mg/dl VERY HIGH Performed By: #### T SH, T7, URIC, LIPID, CMP #### [facility] [address] [address] [address] Jose Greene Triglyceride [Mass/Vol] 152 mg/dL Critically high <=[address] [facility] Comment on above: Performed By: #### T SH, T7, URIC, LIPID, CMP #### [facility] [address] [address] [address] Jose Greene VLDL CALC 30.4 mg/dL Normal [facility] Comment on above: Performed By: #### T SH, T7, URIC, LIPID, CMP #### [facility] [address] [address] [address] Jose Greene OCC BLD IMMUNO SCREENon 05-15 OCCULT BLOOD Negative Normal NEGATIVE [facility] Comment on above: Performed By: #### O BSCRN #### [facility] [address] [place] [address] Dr. Jose Greene PROF 14(COMP METB)on 022 Albumin [Mass/Vol] 4.5 g/dL Normal 3.4-5.0 [facility] Comment on above: Performed By: #### T SH, T7, URIC, LIPID, CMP #### [facility] [address] [address] [address] Jose Greene Albumin/Globulin [Mass ratio] 1.4 {ratio} Normal [facility] Comment on above: Performed By: #### T SH, T7, URIC, LIPID, CMP #### [facility] [address] [address] [address] Jose Greene ALP [Catalytic activity/Vol] 55 U/L Normal 46-[address] [facility] Comment on above: Performed By: #### T SH, T7, URIC, LIPID, CMP #### [facility] [address] [address] [address] Jose Greene ALT [Catalytic activity/Vol] 42 U/L Normal 16-[address] [facility] Comment on above: Performed By: #### T SH, T7, URIC, LIPID, CMP #### [facility] [address] [place] [address] Dr. Jose Greene Anion gap [Moles/Vol] 11.5 mmol/L Normal [facility] Comment on above: Performed By: #### T SH, T7, URIC, LIPID, CMP #### [facility] [address] [place] [address] Dr. Jose Greene AST [Catalytic activity/Vol] 28 U/L Normal 15-[address] [facility] Comment on above: Performed By: #### T SH, T7, URIC, LIPID, CMP #### [facility] [address] [place] [address] Dr. Jose Greene Bilirubin [Mass/Vol] 0.5 mg/dL Normal 0.2-1.[address] [facility] Comment on above: Performed By: #### T SH, T7, URIC, LIPID, CMP #### [facility] [address] [place] [address] Dr. Jose Greene Calcium [Mass/Vol] 9.4 mg/dL Normal 8.5-10.1 [facility] Comment on above: Performed By: #### T SH, T7, URIC, LIPID, CMP #### [facility] [address] [place] [address] Dr. Jose Greene Chloride [Moles/Vol] 102 mmol/L Normal 98-[address] [facility] Comment on above: Performed By: #### T SH, T7, URIC, LIPID, CMP #### [facility] [address] [place] [address] Dr. Jose Greene CO2 [Moles/Vol] 28.8 mmol/L Normal 21.0-32.0 [facility] Comment on above: Performed By: #### T SH, T7, URIC, LIPID, CMP #### [facility] [address] [place] [address] Dr. Jose Greene Creatinine [Mass/Vol] 0.92 mg/dL Normal 0.70-1.30 [facility] Comment on above: Performed By: #### T SH, T7, URIC, LIPID, CMP #### [facility] [address] [place] [address] Dr. Jose Greene EGFR-AF CHINESE >=60 Normal >=60 [facility] Comment on above: Performed By: #### T SH, T7, URIC, LIPID, CMP #### [facility] [address] [place] [address] Dr. Jose Greene EGFR-NON AF CHINESE >=60 Normal >=60 [facility] Comment on above: Performed By: #### T SH, T7, URIC, LIPID, CMP #### [facility] [address] [place] [address] Dr. Jose Greene Globulin (S) [Mass/Vol] 3.2 g/dL Normal [facility] Comment on above: Performed By: #### T SH, T7, URIC, LIPID, CMP #### [facility] [address] [place] [address] Dr. Jose Greene Glucose [Mass/Vol] 107 mg/dL Critically high 74-106 [facility] Comment on above: Performed By: #### T SH, T7, URIC, LIPID, CMP #### [facility] [address] [place] [address] Dr. Jose Greene Potassium [Moles/Vol] 4.3 mmol/L Normal 3.5-5.1 [facility] Comment on above: Performed By: #### T SH, T7, URIC, LIPID, CMP #### [facility] [address] [place] [address] Dr. Jose Greene Protein [Mass/Vol] 7.7 g/dL Normal 6.1-8.2 [facility] Comment on above: Performed By: #### T SH, T7, URIC, LIPID, CMP #### [facility] [address] [place] [address] Dr. Jose Greene Sodium [Moles/Vol] 138 mmol/L Normal 136-145 [facility] Comment on above: Performed By: #### T SH, T7, URIC, LIPID, CMP #### [facility] [address] [place] [address] Dr. Jose Greene Urea nitrogen [Mass/Vol] 17.0 mg/dL Normal 7.0-18.[address] [facility] Comment on above: Performed By: #### T SH, T7, URIC, LIPID, CMP #### [facility] [address] [place] [address] Dr. Jose Greene Urea nitrogen/Creatinine [Mass ratio] 18.5 mg/mg Normal [facility] Comment on above: Performed By: #### T SH, T7, URIC, LIPID, CMP #### [facility] [address] [place] [address] Dr. Jose Greene TSHon 06-10-2021 TSH 2.493 uIU/mL Normal 0.470-4.680 [facility] Comment on above: Performed By: #### T SH, T7, URIC, LIPID, CMP #### [facility] [address] [place] [address] Dr. Jose Greene TSH RANGE SEE BELOW Normal [facility] Comment on above: Result Comment: <0.3 4 UIU/ml HYPERTHYROID 0.34-5.60 UIU/ml EUTHYROID >5.60 UIU/ml HYPOTHYROID Performed By: #### T SH, T7, URIC, LIPID, CMP #### [facility] [address] [place] [address] Dr. Jose Greene URIC ACID SERUMon 06-10-2021 Urate [Mass/Vol] 5.1 mg/dL Normal 3.5-8.[address] [facility] Comment on above: Performed By: #### T SH, T7, URIC, LIPID, CMP #### [facility] [address], [place] [address] Dr. Jose Greene VITAMIN D 25 OHon 06-10-2021 VIT D 25-OH 44.2 ng/mL Normal [facility] Comment on above: Performed By: #### P SASC, VITAD ####[facility] [address] [place], [place] [address]GjDr. Jose Greene VIT D RANGES SEE BELOW Normal [facility] Comment on above: Result Comment: <20 ng/mL Vit D deficient 20 - <30 ng/mL Vit D insufficient 30 - 100 ng/mL Vit D sufficient >100 ng/mL Potential Toxicity Performed By: #### P SASC, VITAD ####[facility] [address] [place], [place] [address]UlDr. Jose Greene MRI SHOULDER ARTHROGRAMon MRI SHOULDER [...] the supraspinatus tendon without disruption or retraction. Mason within the anterolateral humeral head consistent with [...] Date: 2020-10-28 06:[address] [facility] XR ARTHRO SHLD RTon 10-28-19 21 [...] Date: 2020-10-27 15:[address] [facility] Vital Signs Date Time Vital Sign Value Performing Clinician Kareni angeles 10-02-2024 08:50-0400 Body height 175.3 cm Jana Peterson DO Work Phone: [employer] 10-02-2024 08:50-0400 Body mass index (BMI) [Ratio] 29.68 kg/m2 Jana Peterson DO Work Phone: [employer] 10-02-2024 08:50-0400 Body weight 91.17 kg Jana Peterson DO Work Phone: [facility] 10-02-2024 08:50-0400 Diastolic blood pressure 85 mm[Hg] Jana Peterson DO Work Phone: [facility] 10-02-2024 08:50-0400 Heart rate 79 /min Jana Peterson DO Work Phone: [facility] 10-02-2024 08:50-0400 Systolic blood pressure 164 mm[Hg] Jana Peterson DO Work Phone: [facility] 08-23-2023 14:37-0400 Blood Pressure Location Jana SHERMAN [facility] 08-23-2023 14:37-0400 Diastolic blood pressure 94 mm[Hg] Jana SHERMAN [facility] 08-23-2023 14:37-0400 Heart rate 72 /min Jana SHERMAN [facility] 08-23-2023 14:37-0400 Respiratory rate 16 /min Jana GOMEZL [facility] 08-23-2023 14:37-0400 Systolic blood pressure 144 mm[Hg] Jana SHERMAN [facility] Encounters Encounter Date Encounter Type Care Provider Facility Start: 10-02-2024 End: 10-02-2024 Office outpatient new 30 minutes Jana Peterson DO Work Phone: [facility] Comment on above: Reducible umbilical hernia Start: 10-02-2024 End: 10-02-2024 ambulatory JANA Belkis LACY [facility] Start: 09-30-2024 End: 09-30-2024 Emergency department patient visit [facility] Start: 09-05-2024 ambulatory [facility] Start: 08-02-2024 ambulatory CHRISTIAN BEE [facility] Start: 11-22-2023 End: 11-22-2023 ambulatory [facility] Start: 11-22-2023 End: 11-22-2023 [facility] Start: 11-01-2023 End: 11-01-2023 ambulatory Jana Sherman [facility] Work Phone: Start: 11-01-2023 End: 11-01-2023 Departed Referred MD Jana Sherman Work Phone: [facility] Start: 11-01-2023 End: 11-01-2023 ambulatory Jana SEHRMAN Facility:[id number] Start: 08-23-2023 End: 08-23-2023 ambulatory Christian Bee [facility] Start: 08-23-2023 End: 08-23-2023 Patient encounter procedure [facility] Start: 07-21-2023 ambulatory Jana SHERMAN [facility]: [facility] Start: 06-21-2021 End: 06-22-[address] CHRISTIAN BEE Facility:[facility] Start: 06-10-2021 End: 06-11-[address] CHRISTIAN BEE Facility:[facility] Start: 10-27-2020 End: 10-27-[address] CHRISTIAN BEE Facility:[facility] Start: 10-07-2020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
== END 2024-10-16 11:39 | disposition home or self-care (01) ==
LOC: RAD 11:41
PROVIDERS: PCP Family Medicine; Visit Provider Family Medicine
DX: M96.1 Postlaminectomy syndrome, not elsewhere classified (principal); M85.88 Other specified disorders of bone density and structure, other site; M51.34 Other intervertebral disc degeneration, thoracic region; M51.369 Other intervertebral disc degeneration, lumbar region without mention of lumbar back pain or lower extremity pain
CPT/HCPCS: 72072; 72110